=== PATIENT | female | born 1955 | race African-American/Black ===

== ENCOUNTER 2017-03-22 17:25 | Inpatient (IN) ==
[2017-03-22] MEDS ORDERED: PHENYLEPHRINE 0.5% NASAL SPRAY 15 ML BOTTLE BOTH NARES ONE (17:54)
[2017-03-22] MEDS ORDERED: PHENYLEPHRINE 0.5% NASAL SPRAY 15 ML BOTTLE BOTH NARES STA (18:00)
[2017-03-22 18:05] LABS: Basophils % 0.3 % (0.0-0.8); Eosinophils # 0.2 10*3/uL (0.0-0.87); Eosinophils % 2.4 % (0.00-10.9); Hematocrit 23.8 VOL% (35.7-47.0); Hemoglobin 7.7 GM/DL (12.0-16.0); Immature Granulocytes % 0.5 %; Immature Granulocytes Absolute 0.03 #; Lymphocytes # 1.3 10*3/uL (1.4-4.0); Lymphocytes % 21.2 % (21.3-54.2); Mean Corpuscular HGB Conc 32.4 GM/DL (32-36); Mean Corpuscular Hemoglobin 29 PG (27-34); Mean Corpuscular Volume 89.1 FL (87-102); Mean Platelet Volume 8.8 FL (9.6-12.0); Monocytes # 0.3 10*3/uL (0.11-0.8); Monocytes % 4.5 % (1.7-12.7); Neutrophils # 4.4 10*3/uL (1.4-7.4); Neutrophils % 71.1 % (38.7-73.9); Platelet Count 254 T/CUMM (130-400); Red Blood Count 2.67 MC/CUMM (3.8-5.5); Red Cell Distribution Width 14.5 % (9.3-17.3); White Blood Count 6.2 T/CUMM (4-12)
--- NOTE | 2017-03-22 18:22 | Emergency Department Note ---
Kassy Russell Rolonda, am scribing for, and in the presence of, Mino Alonso MD 17:59. Celeste Russell Charles R, MD, personally performed the services described in this documentation, ascribed by Leann Elena in my presence, and it is both accurate and complete 822 . Arrival - Arrival Chief Complaint: Nosebleed/Nasal Foreign Body Stated Complaint: nose bleed ED Nursing Triage Note: pt to triage via wc with c/o having nose bleed onset today around 0800 pt states it hasnt stopped this this am. pt states she is on blood thinner PLavix. Mode of Arrival: Ambulatory Limitations: No Limitations Source: Patient, Old Records Reviewed, RN Notes Reviewed Time Seen by Provider: 03/22/17 17:39 - History of Present Illness HPI Narrative: Pt is a 61 y/o female who presents to the ED with c/o epistaxis with an onset of x1 month. Pt has a PMHx of HTN and states that she is currently taking Plavix. She states that she has a nose bleed "that she just cannot stop". Pt states that the nose bleeds are intermittent; it will stop and it will start back again. She confirms that the blood is very thick but denies any trauma to the nose. She states that she went to [facility] but was unable to be helped which prompted her visit to the ED. Pt states that she has an appointment with ENT tomorrow. To relieve the szs pt states that she puts an ice pack on her neck. She denies vertigo and weakness. Pt's nose was not bleeding during time of exam. No other complaint/pain in ED. Onset (ago): month(s) Consistency: intermittent Severity: mild Severity scale (1-10): 3 Allergies/Adverse Reactions: Allergies Allergy/AdvReac Type Severity Reaction Status Date / Time sulfamethoxazole Allergy Swelling Verified 03/22/17 17:33 [From Bactrim] of Lip/Tongue/Throat trimethoprim [From Bactrim] Allergy Swelling Verified 03/22/17 17:33 of Lip/Tongue/Throat Home Medications: Home Medications Medication Instructions Recorded Confirmed Type Clopidogrel Bisulfate [Clopidogrel] 75 mg PO DAILY 09/09/16 09/09/16 History Ferrous Sulfate Tab [Feosol 325 mg PO DAILY 09/09/16 09/09/16 History Original Tab] Gabapentin 300 mg PO TID 09/09/16 09/09/16 History Iron Polysaccharide Complex 150 mg PO DAILY 09/09/16 09/09/16 History [Ferrex 150] Levothyroxine Tab [Synthroid Tab] 112 mcg PO DAILY@0700 09/09/16 09/09/16 History Pravastatin Sodium 40 mg PO DAILY 09/09/16 09/09/16 History glipiZIDE [Glipizide] 5 mg PO BID 09/09/16 09/09/16 History hydrALAZINE TAB [Apresoline Tab] 50 mg PO TID 09/09/16 09/09/16 History Acetaminophen Tab [Tylenol Tab] 325 mg PO Q4H PRN #0 tablet 09/14/16 Rx Calcitriol [Rocaltrol] 0.5 mcg PO DAILY #30 capsule 09/14/16 Rx Calcium (Carbonate) [Caltrate 600] 1,200 mg PO BID #60 tablet 09/14/16 Rx Calcium Acetate [Phoslo] 667 mg PO TID W/MEALS #90 capsule 09/14/16 Rx Losartan [Cozaar] 50 mg PO DAILY #30 tablet 09/14/16 Rx Metoprolol Succinate Xl [Toprol Xl] 100 mg PO DAILY #30 tablet 09/14/16 Rx Skin Healing Oint (Aquaphor) 1 applic TOP PRN PRN #0 ointment 09/14/16 Rx [Aquaphor] amLODIPine [Norvasc] 5 mg PO DAILY #30 tablet 09/14/16 Rx traZODone [Desyrel] 50 mg PO BEDTIME PRN #30 tablet 09/14/16 Rx Review of System - Review of System 12 point system: reviewed and no additional remarkable complaints except as stated - Review of System Constitutional: Absent: chills, fever Eyes: Absent: discharge Head/Ears/Nose/Throat: Present: epistaxis. Absent: earache Cardiovascular: Absent: chest pain Gastrointestinal: Absent: abdominal pain, nausea Genitourinary female: Absent: abnormal menses Musculoskeletal: Absent: arm pain, back pain Skin: Absent: rash Neurological: Absent: headache Psychiatric: Absent: anxiety Endocrine: Absent: cold intolerance Hematological/Lymphatic: Absent: easy bleeding Allergic/Immunologic: Absent: facial swelling Medical,Surgical,& Family Hx - Medical History Cardio: History of: Hypertension Endocrine: History of: Diabetes Mellitus (IDDM), Dyslipidemia, Thyroid Disorder Renal: History of: Renal Failure (not on dialysis) - Social History Smoking Status: Never smoker Frequency of Alcohol Use: None Type of Drug Use: None Exam Vital Signs: Vital Signs Temperature 97.8 F 03/22/17 17:38 Pulse Rate 95 H 03/22/17 17:38 Respiratory Rate 18 03/22/17 17:38 Blood Pressure 138/74 03/22/17 17:38 O2 Sat by Pulse Oximetry 100 03/22/17 17:28 - General General appearance: alert, in no apparent distress - Head Head exam: Present: atraumatic, normocephalic - Eye Eye exam: Present: PERRL, EOMI, other (Pale conjunctiva) - ENT ENT exam: Present: mucous membranes moist. Absent: normal exam (clotts pulled out of nose), mucous membranes dry - Neck Neck exam: Present: full ROM. Absent: tenderness - Chest Chest inspection: Present: symmetric chest wall rise. Absent: tenderness - Respiratory Respiratory exam: Present: normal lung sounds bilaterally. Absent: wheezes - Cardiovascular Cardiovascular exam: Present: regular rate, normal rhythm, normal heart sounds. Absent: bradycardia - Abdominal Exam Abdominal exam: Present: soft, normal bowel sounds. Absent: tenderness - Extremities Exam Extremities exam: Present: full ROM. Absent: normal inspection (left BKA) - Back Exam Back exam: Present: full ROM. Absent: tenderness - Neurological Exam Neurological exam: Present: alert, oriented X3, CN II-XII intact - Psychiatric Psychiatric exam: Present: normal affect, normal mood - Skin Skin exam: Present: warm, dry, intact, normal color. Absent: rash Course - Consultations Consultation #1: Hospitalist will admit patient Time: 18:20 Results - Labs CBC & BMP: 03/22/17 17:59 Lab Results: I have reviewed the patients labs Labs: Laboratory Tests 03/22/17 17:59 WBC 6.2 RBC 2.67 L Hgb 7.7 L Hct 23.8 L Plt Count 254 MPV 8.8 L Lymph % (Auto) 21.2 L Lymph # (Auto) 1.3 L Disposition Clinical Impression: CKD (chronic kidney disease) stage 4, GFR 15-29 ml/min, Chronic renal failure, Acute blood loss anemia, Anemia due to renal failure, Epistaxis, recurrent, Chronic anticoagulation Case discussed with: patient, patient's family Disposition: Still a Patient Condition: Stable Time of Disposition: 18:26
[2017-03-22 18:50] LABS: Alanine Aminotransferase 13 U/L (13-56); Albumin 3.1 G/DL (3.4-5.0); Alkaline Phosphatase 61 U/L (45-117); Aspartate Amino Transferase 15 U/L (0-37); Bilirubin,Total < 0.39 MG/DL (0.2-1.0); Blood Urea Nitrogen 43 MG/DL (7-18); Calcium 8.4 MG/DL (8.5-10.1); Glucose 168 MG/DL (74-106); Potassium 3.6 MMOL/L (3.5-5.1); Sodium 143 MMOL/L (136-145); Total Protein 6.3 G/DL (6.4-8.3)
[2017-03-22] MEDS ORDERED: DEXTROSE 50% 25 GM/50 ML SYRINGE IV PRN (18:59)
[2017-03-22] MEDS ORDERED: ACETAMINOPHEN 325 MG TABLET PO PRN (18:59)
[2017-03-22] MEDS ORDERED: GLUCAGON 1 MG VIAL IM PRN (18:59)
[2017-03-22] MEDS ORDERED: ONDANSETRON 4 MG/2 ML VIAL IV PRN (18:59)
[2017-03-22] MEDS ORDERED: SODIUM CHLORIDE 0.9% 250 ML IV PRN (19:03)
--- NOTE | 2017-03-22 19:09 | Hospitalist History & Physical ---
Assessment and Plan (1) Chronic renal failure Status: Acute Current Visit: Yes Qualifiers: Chronic kidney disease stage: stage 4 (severe) Qualified Code(s): N18.4 - Chronic kidney disease, stage 4 (severe) (2) Epistaxis, recurrent Status: Acute Current Visit: Yes (3) CKD (chronic kidney disease) stage 4, GFR 15-29 ml/min Problem details: Continue calcitriol to 0.5mcg daily. Increase oral calcium to 1200mg bid. Status: Chronic Current Visit: Yes (4) HTN (hypertension) Status: Acute Current Visit: No (5) Diabetes mellitus Status: Chronic Assessment and plan: Our plan for this patient will be admitting her to our service. She will be placed on monitored bed. I will transfuse 1 unit packed of packed red blood cells. She has a baseline anemia but her H&H is reduced from it. This should get her back to her normal H&H. We will get ENT to see her for their evaluation. Current Visit: No History of Present Illness Chief complaint: Nosebleed History of present illness: Ms. Saavedra is a 61 year old female who presents to our hospital with a past medical history of chronic kidney disease stage IV, hypertension, diabetes, hypothyroidism and increased cholesterol who was in her normal state of health till today. Patient had explained experiencing a nosebleed that has been going on all day. Patient reports that she has had what she considers a significant blood loss. She came to our emergency room for further evaluation. Patient's bleeding has currently stopped. She received Waqas-Synephrine nose spray while in the ER. Patient is on Plavix and our concern is that she is prone for continuous bleed and it would be better to observe her in the hospital. I was consulted to admit her to the emergency room Home Medications Medication Instructions Recorded Confirmed Type Clopidogrel Bisulfate [Clopidogrel] 75 mg PO DAILY 09/09/16 03/22/17 History Gabapentin 300 mg PO TID 09/09/16 03/22/17 History Iron Polysaccharide Complex 150 mg PO DAILY 09/09/16 03/22/17 History [Ferrex 150] Levothyroxine Tab [Synthroid Tab] 112 mcg PO DAILY@0700 09/09/16 03/22/17 History glipiZIDE [Glipizide] 5 mg PO BID W/MEALS 09/09/16 03/22/17 History Acetaminophen Tab [Tylenol Tab] 325 mg PO Q4H PRN #0 tablet 09/14/16 03/22/17 Rx Calcium Acetate [Phoslo] 667 mg PO TID W/MEALS #90 capsule 09/14/16 03/22/17 Rx Calcitriol [Rocaltrol] 0.5 mcg PO BID 03/22/17 03/22/17 History Insulin Degludec [Tresiba 10 units SUBCUT BEDTIME 03/22/17 03/22/17 History Flextouch U-100] Lisinopril [Lisinopril] 20 mg PO DAILY 03/22/17 03/22/17 History Pravastatin Sodium [Pravastatin 80 mg PO DAILY 03/22/17 03/22/17 History Sodium] cloNIDine HCl [Clonidine HCl] 0.1 mg PO BID 03/22/17 03/22/17 History Allergies Allergy/AdvReac Type Severity Reaction Status Date / Time sulfamethoxazole Allergy Swelling Verified 03/22/17 17:33 [From Bactrim] of Lip/Tongue/Throat trimethoprim [From Bactrim] Allergy Swelling Verified 03/22/17 17:33 of Lip/Tongue/Throat Medical,Surgical,& Family Hx - Medical History Cardio: History of: Hypertension Endocrine: History of: Diabetes Mellitus (IDDM), Dyslipidemia, Thyroid Disorder Renal: History of: Renal Failure (not on dialysis) - Surgical History Additional Surgical History: Below the knee amputation on the left, hysterectomy , goiter removal, - Family History Family History: Reports;: Family Cancer, Family Heart Disease, Family Hematology - Social History Smoking Status: Never smoker Frequency of Alcohol Use: None Type of Drug Use: None 12 point system: reviewed and no additional remarkable complaints except as stated Exam - Constitutional Vitals: Period Temp Pulse Resp BP Sys/[place] Pulse Ox Last 24 Hr 97.8 F-97.8 F 95-95 18-18 138-138/74-74 100 General appearance: over weight - Head Head exam: Present: normal inspection - Eye Eye exam: Present: EOMI Pupils: Present: JOE - ENT ENT exam: Present: normal exam - Neck Neck exam: Present: normal inspection - Respiratory Respiratory exam: Present: clear to auscultation bilaterally - Cardiovascular Cardiovascular exam: Present: regular rate and rhythm - GI/Abdominal GI/Abdominal exam: Present: normal bowel sounds - Extremities Exam Extremities exam: Present: normal inspection - Back Exam Back exam: Present: normal inspection - Neurological Exam Neurological exam: Present: alert, oriented X3 - Psychiatric Psychiatric exam: Present: normal affect, normal mood Results - Labs CBC & BMP: 03/22/17 17:59 03/22/17 17:59
[2017-03-22] MEDS: CALCITRIOL 0.25 MCG CAPSULE PO SCH (21:41)
[2017-03-22] MEDS: GABAPENTIN 300 MG CAPSULE PO SCH (21:41)
[2017-03-22] MEDS: cloNIDine 0.1 MG TABLET PO SCH (21:41)
[2017-03-22] MEDS: INSULIN GLARGINE 100 UNIT/ML SUBCUT SCH (21:41)
[2017-03-22] MEDS: INSULIN REGULAR 100 UNIT/ML SUBCUT SCH (21:43)
[2017-03-23 03:00] LABS: Hematocrit 24.8 VOL% (35.7-47.0); Hemoglobin 7.9 GM/DL (12.0-16.0)
[2017-03-23 03:18] LABS: Albumin 2.8 G/DL (3.4-5.0); Bilirubin,Total 0.9 MG/DL (0.2-1.0); Calcium 8.1 MG/DL (8.5-10.1); Osmolality,Calculated 294.1 MOS/KG (273-304); Potassium 3.6 MMOL/L (3.5-5.1); Total Protein 5.8 G/DL (6.4-8.3)
[2017-03-23 03:29] LABS: Basophils % 0.3 % (0.0-0.8); Eosinophils # 0.2 10*3/uL (0.0-0.87); Eosinophils % 2.9 % (0.00-10.9); Hematocrit 24.8 VOL% (35.7-47.0); Hemoglobin 8.1 GM/DL (12.0-16.0); Immature Granulocytes % 0.6 %; Immature Granulocytes Absolute 0.04 #; Lymphocytes # 1.9 10*3/uL (1.4-4.0); Mean Corpuscular HGB Conc 32.7 GM/DL (32-36); Mean Corpuscular Hemoglobin 29 PG (27-34); Mean Corpuscular Volume 87.3 FL (87-102); Mean Platelet Volume 8.9 FL (9.6-12.0); Monocytes # 0.5 10*3/uL (0.11-0.8); Monocytes % 7.5 % (1.7-12.7); Neutrophils # 4.3 10*3/uL (1.4-7.4); Neutrophils % 61.7 % (38.7-73.9); Platelet Count 220 T/CUMM (130-400); Red Blood Count 2.84 MC/CUMM (3.8-5.5); Red Cell Distribution Width 17.1 % (9.3-17.3); White Blood Count 6.9 T/CUMM (4-12)
[2017-03-23] MEDS: LEVOTHYROXINE 112 MCG TABLET PO SCH (06:41)
[2017-03-23] MEDS: GABAPENTIN 300 MG CAPSULE PO SCH ×3 (09:06→22:28)
[2017-03-23] MEDS: PRAVASTATIN 40 MG TABLET PO SCH (09:06)
[2017-03-23] MEDS: LISINOPRIL 20 MG TABLET PO SCH (09:06)
[2017-03-23] MEDS: CALCITRIOL 0.25 MCG CAPSULE PO SCH ×2 (09:06→22:27)
[2017-03-23] MEDS: CALCIUM ACETATE 667 MG CAPSULE PO SCH ×3 (09:07→18:11)
[2017-03-23] MEDS: cloNIDine 0.1 MG TABLET PO SCH ×3 (09:07→23:49)
[2017-03-23] MEDS: glipiZIDE 5 MG TABLET PO SCH ×2 (09:07→18:11)
[2017-03-23] MEDS: INSULIN REGULAR 100 UNIT/ML SUBCUT SCH ×4 (09:07→22:28)
[2017-03-23] MEDS: CLOPIDOGREL 75 MG TABLET PO SCH (09:07)
[2017-03-23] MEDS: PANTOPRAZOLE 40 MG TABLET PO SCH (09:07)
[2017-03-23] MEDS: IRON (CARBONYL)/VIT C/B12/FA TABLET PO SCH (11:59)
--- NOTE | 2017-03-23 12:58 | Consultation ---
Assessment and Plan - Time spent with patient Time spent with patient: Less than 30 minutes (1) Epistaxis, recurrent Status: Acute Assessment and plan: Left sided posterior sinus foam packing to help prevent recurrent epistaxis this is dissolvable and should resolve over the next 3 days to 1 week and was tolerated very well. I will add nasal saline spray for her to use as needed to to help keep her nose moist. If there are any recurrences please notify me as I will not necessarily follow this patient every day during her stay but if there are any problems please notify me thank you very much Current Visit: Yes (2) Chronic kidney disease, stage III (moderate) Status: Acute Current Visit: No (3) Acute blood loss anemia Status: Acute Current Visit: Yes (4) Chronic anticoagulation Status: Acute Current Visit: Yes History of Present Illness - Data of Consult Patient: new to practice Consult date: 03/23/17 - Consult Narrative Reason for consult: Epistaxis History of present illness: Ms. Saavedra is a 61 year old female with multiple medical comorbidities including a history of breast cancer and chronic kidney disease associated with anemia and last night she reports a left-sided nasal airway hemorrhage that took greater than 15 minutes to control and has been intermittent since then she was able to control it with pressure but it took greater than 15 minutes and she reports coughing and choking because of the posterior aspect as well. No additional otolaryngologic complaints CC: Olena Harris MD - Home Medications and Allergies Home Medications: Home Medications Medication Instructions Recorded Confirmed Type Clopidogrel Bisulfate [Clopidogrel] 75 mg PO DAILY 09/09/16 03/22/17 History Gabapentin 300 mg PO TID 09/09/16 03/22/17 History Iron Polysaccharide Complex 150 mg PO DAILY 09/09/16 03/22/17 History [Ferrex 150] Levothyroxine Tab [Synthroid Tab] 112 mcg PO DAILY@0700 09/09/16 03/22/17 History glipiZIDE [Glipizide] 5 mg PO BID W/MEALS 09/09/16 03/22/17 History Acetaminophen Tab [Tylenol Tab] 325 mg PO Q4H PRN #0 tablet 09/14/16 03/22/17 Rx Calcium Acetate [Phoslo] 667 mg PO TID W/MEALS #90 capsule 09/14/16 03/22/17 Rx Calcitriol [Rocaltrol] 0.5 mcg PO BID 03/22/17 03/22/17 History Insulin Degludec [Tresiba 10 units SUBCUT BEDTIME 03/22/17 03/22/17 History Flextouch U-100] Lisinopril [Lisinopril] 20 mg PO DAILY 03/22/17 03/22/17 History Pravastatin Sodium [Pravastatin 80 mg PO DAILY 03/22/17 03/22/17 History Sodium] cloNIDine HCl [Clonidine HCl] 0.1 mg PO BID 03/22/17 03/22/17 History Allergies/Adverse Reactions: Allergies Allergy/AdvReac Type Severity Reaction Status Date / Time sulfamethoxazole Allergy Swelling Verified 03/22/17 17:33 [From Bactrim] of Lip/Tongue/Throat trimethoprim [From Bactrim] Allergy Swelling Verified 03/22/17 17:33 of Lip/Tongue/Throat 12 point system: reviewed and no additional remarkable complaints except as stated Medical,Surgical,& Family Hx - Medical History Cardio: History of: Hypertension Endocrine: History of: Diabetes Mellitus (IDDM), Dyslipidemia, Thyroid Disorder Respiratory: History of: Obstructive Sleep Apnea Renal: History of: Renal Failure (not on dialysis) Musculoskeletal: History of: Amputation (left BKA) Hematology: History of: Anemia - Family History Family History: Reports;: Family Cancer, Family Heart Disease, Family Hematology - Social History Smoking Status: Never smoker Frequency of Alcohol Use: None Type of Drug Use: None Exam - Constitutional Vitals: Period Temp Pulse Resp BP Sys/[place] Pulse Ox Last 24 Hr 96.1 F-98 F 57-95 16-20 132-181/58-77 96-100 General appearance: normal weight, no acute distress - Head Head exam: Present: normal inspection, normocephalic - Eye Eye exam: Present: EOMI Pupils: Present: JOE - ENT ENT exam: Present: normal exam, normal external ear exam, normal oropharynx, other (Anterior rhinoscopy on the left reveals dried hemorrhage consistent with epistaxis in the posterior portion of the nasal airway.) - Neck Neck exam: Present: normal inspection - Respiratory Respiratory exam: Present: other (No shortness of breath or difficulty breathing ) - Extremities Exam Extremities exam: Present: normal inspection, normal capillary refill - Neurological Exam Neurological exam: Present: alert, oriented X3, CN II-XII intact - Psychiatric Psychiatric exam: Present: normal affect, normal mood - Skin Skin exam: Present: normal color, warm Results - Labs CBC & BMP: 03/23/17 02:24 03/23/17 02:24 Lab Results: I have reviewed the past 24 hour labs
[2017-03-23] MEDS ORDERED: SODIUM CHLORIDE 0.65% NASAL SPRAY 45 ML BOTTLE BOTH NARES PRN (13:03)
[2017-03-23 18:00] LABS: Hematocrit 35.2 VOL% (35.7-47.0)
[2017-03-23 18:01] LABS: Hemoglobin 11.8 GM/DL (12.0-16.0)
--- NOTE | 2017-03-23 18:10 | Hospitalist Progress Note ---
Assessment and Plan (1) Epistaxis, recurrent Status: Acute Assessment and plan: Status post nasal packing by ENT. Monitor closely for further bleeding. Discharge home in a.m. if H&H stable and no further bleeding occurs. Current Visit: Yes (2) Acute blood loss anemia Status: Acute Assessment and plan: Improved after transfusion of 3 units of packed red blood cells. Repeat CBC in a.m. Current Visit: Yes (3) Hypothyroidism Status: Chronic Current Visit: No Qualifiers: Hypothyroidism type: acquired Qualified Code(s): E03.9 - Hypothyroidism, unspecified (4) Diabetes mellitus Status: Chronic Current Visit: No (5) CKD (chronic kidney disease) stage 4, GFR 15-29 ml/min Problem details: Continue calcitriol to 0.5mcg daily. Increase oral calcium to 1200mg bid. Status: Chronic Current Visit: Yes (6) HTN (hypertension) Status: Acute Current Visit: No Hospitalist: Subjective Interval history: Patient seen and examined. No acute events overnight. Case discussed with nursing staff. Labs reviewed. The patient was admitted overnight with significant epistaxis on anticoagulation. She was seen and examined by ENT today. Nasal packing was placed. The patient will be monitored overnight with repeat labs in a.m. and anticipate discharge home tomorrow if no further bleeding occurs Exam - Constitutional Vitals: Period Temp Pulse Resp BP Sys/[place] Pulse Ox Last 24 Hr 96.1 F-98.1 F 57-94 16-20 132-196/58-84 95-100 Exam: Constitutional System: No distress. No tremulousness. Head: Normocephalic, atraumatic. Ears, Nose and Throat System: No pain or tenderness. No active bleeding or discharge noted from the nares Eyes System: Pupils equal, round, and reactive. Extraocular muscles intact. Neck: Supple, without adenopathy, No jugular venous distention. Respiratory System: Chest clear to auscultation. Cardiovascular System: Heart with regular rate and rhythm. No murmur. GI System: Abdomen soft, nontender. Normo active bowel sounds present. Musculoskeletal System: limbs with no pedal edema. Full distal pulses. Neurological System: No discernable sensory deficit. No aphasia Psychiatric System: Conversation is rational Results - Labs CBC & BMP: 03/23/17 17:42 03/23/17 02:24 Lab Results: I have reviewed the past 24 hour labs
[2017-03-23] MEDS: INSULIN GLARGINE 100 UNIT/ML SUBCUT SCH (22:26)
[2017-03-24 05:56] LABS: Basophils % 0.3 % (0.0-0.8); Eosinophils # 0.2 10*3/uL (0.0-0.87); Eosinophils % 3.3 % (0.00-10.9); Hematocrit 31.9 VOL% (35.7-47.0); Hemoglobin 10.8 GM/DL (12.0-16.0); Immature Granulocytes % 0.8 %; Immature Granulocytes Absolute 0.06 #; Lymphocytes % 27.4 % (21.3-54.2); Mean Corpuscular HGB Conc 33.9 GM/DL (32-36); Mean Corpuscular Hemoglobin 29 PG (27-34); Mean Corpuscular Volume 84.4 FL (87-102); Monocytes # 0.5 10*3/uL (0.11-0.8); Monocytes % 7.3 % (1.7-12.7); Neutrophils # 4.4 10*3/uL (1.4-7.4); Neutrophils % 60.9 % (38.7-73.9); Platelet Count 212 T/CUMM (130-400); Red Blood Count 3.78 MC/CUMM (3.8-5.5); Red Cell Distribution Width 16.8 % (9.3-17.3); White Blood Count 7.2 T/CUMM (4-12)
[2017-03-24 06:40] LABS: Calcium 8.9 MG/DL (8.5-10.1); Osmolality,Calculated 296.7 MOS/KG (273-304); Potassium 3.6 MMOL/L (3.5-5.1)
[2017-03-24] MEDS: LEVOTHYROXINE 112 MCG TABLET PO SCH (07:21)
[2017-03-24] MEDS: GABAPENTIN 300 MG CAPSULE PO SCH ×3 (09:17→21:17)
[2017-03-24] MEDS: LISINOPRIL 20 MG TABLET PO SCH (09:17)
[2017-03-24] MEDS: glipiZIDE 5 MG TABLET PO SCH ×2 (09:17→17:17)
[2017-03-24] MEDS: cloNIDine 0.1 MG TABLET PO SCH ×2 (09:17→21:17)
[2017-03-24] MEDS: INSULIN REGULAR 100 UNIT/ML SUBCUT SCH ×4 (09:17→21:23)
[2017-03-24] MEDS: CALCIUM ACETATE 667 MG CAPSULE PO SCH ×3 (09:18→17:16)
[2017-03-24] MEDS: CLOPIDOGREL 75 MG TABLET PO SCH (09:18)
[2017-03-24] MEDS: PRAVASTATIN 40 MG TABLET PO SCH (09:18)
[2017-03-24] MEDS: IRON (CARBONYL)/VIT C/B12/FA TABLET PO SCH (09:18)
[2017-03-24] MEDS: PANTOPRAZOLE 40 MG TABLET PO SCH (09:18)
[2017-03-24] MEDS: CALCITRIOL 0.25 MCG CAPSULE PO SCH ×2 (10:21→21:44)
[2017-03-24] MEDS ORDERED: hydrALAZINE 25 MG TABLET PO SCH (15:00)
[2017-03-24] MEDS ORDERED: hydrALAZINE 20 MG/1 ML VIAL IV ONE (15:29)
--- NOTE | 2017-03-24 20:28 | Hospitalist Progress Note ---
Hospitalist: Subjective Interval history: Patient has no further epistaxis. Her blood pressure remains uncontrolled he also has episodes of sinus bradycardia. Exam - Constitutional Vitals: Period Temp Pulse Resp BP Sys/[place] Pulse Ox Last 24 Hr 97 F-97.6 F 18-66 18-20 186-204/60-85 92-99 Exam: General: No Acute Distress HEENT: Normocephalic, atraumatic, Extra ocular movements intact Neck: Supple, No JVD Chest: Clear to auscultation B/L CV: S1 + S2 audible without murmur, gallop or rub Abd: soft, NT, Non-distended, BS + Ext: No edema Skin: No purpura, bruising or rash Rheumatologic: No Joint deformities Neurologic: Strength 5/5 all extremities, no gross sensory deficits Results - Labs CBC & BMP: 03/24/17 05:09 03/24/17 05:09 - Impressions Assessment and Plan: (1) Epistaxis, recurrent Status: Acute Assessment and plan: Status post nasal packing by ENT. She has no further bleeding Current Visit: Yes (2) Acute blood loss anemia Status: Acute Assessment and plan: Improved after transfusion of 3 units of packed red blood cells. Current Visit: Yes (3) Hypothyroidism Status: Chronic Current Visit: No Qualifiers: Hypothyroidism type: acquired Qualified Code(s): E03.9 - Hypothyroidism, unspecified (4) Diabetes mellitus-II Status: Chronic Current Visit: No (5) CKD (chronic kidney disease) stage 4, GFR 15-29 ml/min Status: Chronic Current Visit: Yes (6) Hypertensive urgency Status: Acute Current Visit: Yes IV as well as oral hydralazine. Home Lopressor was held due to bradycardia, she has been started on Tenex. Continue to monitor blood pressure and heart rate and adjust medications as dictated by her blood pressure and heart rate.
[2017-03-24] MEDS: INSULIN GLARGINE 100 UNIT/ML SUBCUT SCH (21:22)
[2017-03-25] MEDS: LEVOTHYROXINE 112 MCG TABLET PO SCH (06:59)
[2017-03-25] MEDS: PRAVASTATIN 40 MG TABLET PO SCH (08:17)
[2017-03-25] MEDS: CALCITRIOL 0.25 MCG CAPSULE PO SCH ×2 (08:17→21:22)
[2017-03-25] MEDS: IRON (CARBONYL)/VIT C/B12/FA TABLET PO SCH (08:17)
[2017-03-25] MEDS: CALCIUM ACETATE 667 MG CAPSULE PO SCH ×3 (08:17→17:06)
[2017-03-25] MEDS: CLOPIDOGREL 75 MG TABLET PO SCH (08:17)
[2017-03-25] MEDS: GABAPENTIN 300 MG CAPSULE PO SCH ×3 (08:17→21:23)
[2017-03-25] MEDS: glipiZIDE 5 MG TABLET PO SCH ×2 (08:18→17:06)
[2017-03-25] MEDS: cloNIDine 0.1 MG TABLET PO SCH ×2 (08:18→21:23)
[2017-03-25] MEDS: PANTOPRAZOLE 40 MG TABLET PO SCH (08:18)
[2017-03-25] MEDS: LISINOPRIL 20 MG TABLET PO SCH (08:18)
[2017-03-25] MEDS: INSULIN REGULAR 100 UNIT/ML SUBCUT SCH ×4 (08:22→21:23)
[2017-03-25] MEDS: ISOSORBIDE DINITRATE 20 MG TABLET PO SCH ×2 (09:10→21:23)
[2017-03-25] MEDS: hydrALAZINE 20 MG/1 ML VIAL IV PRN (15:56)
[2017-03-25] MEDS ORDERED: LISINOPRIL 20 MG TABLET PO ONE (17:52)
[2017-03-25] MEDS: INSULIN GLARGINE 100 UNIT/ML SUBCUT SCH (21:23)
[2017-03-26] MEDS: hydrALAZINE 20 MG/1 ML VIAL IV PRN ×2 (00:03→06:36)
[2017-03-26 06:19] LABS: Calcium 9.9 MG/DL (8.5-10.1); Osmolality,Calculated 302.7 MOS/KG (273-304); Potassium 3.7 MMOL/L (3.5-5.1)
[2017-03-26] MEDS: LEVOTHYROXINE 112 MCG TABLET PO SCH (06:37)
[2017-03-26] MEDS: INSULIN REGULAR 100 UNIT/ML SUBCUT SCH ×2 (07:49→12:12)
[2017-03-26] MEDS: GABAPENTIN 300 MG CAPSULE PO SCH (08:52)
[2017-03-26] MEDS: PRAVASTATIN 40 MG TABLET PO SCH (08:52)
[2017-03-26] MEDS: PANTOPRAZOLE 40 MG TABLET PO SCH (08:52)
[2017-03-26] MEDS: IRON (CARBONYL)/VIT C/B12/FA TABLET PO SCH (08:52)
[2017-03-26] MEDS: CALCIUM ACETATE 667 MG CAPSULE PO SCH ×2 (08:52→12:10)
[2017-03-26] MEDS: CALCITRIOL 0.25 MCG CAPSULE PO SCH (08:52)
[2017-03-26] MEDS: cloNIDine 0.1 MG TABLET PO SCH (08:52)
[2017-03-26] MEDS: ISOSORBIDE DINITRATE 20 MG TABLET PO SCH (08:53)
[2017-03-26] MEDS: CLOPIDOGREL 75 MG TABLET PO SCH (08:53)
[2017-03-26] MEDS: LISINOPRIL 20 MG TABLET PO SCH (08:53)
[2017-03-26] MEDS: glipiZIDE 5 MG TABLET PO SCH (08:53)
[2017-03-26] MEDS ORDERED: LISINOPRIL 20 MG TABLET PO SCH (09:00)
[2017-03-26] MEDS ORDERED: LISINOPRIL 10 MG TABLET PO SCH (10:01)
[2017-03-26] MEDS ORDERED: amLODIPine 10 MG TABLET PO SCH (10:30)
--- NOTE | 2017-03-26 12:24 | Discharge Summary ---
Hospital Course - Hospital Course Hospital Course: 61 year old female with history of chronic kidney disease stage IV, hypertension , diabetes, hypothyroidism was admitted with epistaxis. She received Waqas- Synephrine nose spray while in the ER. Patient was on Plavix as well. She was admitted to the hospitalist service. He was seen by ENT Dr. Chavez on who place a left-sided posterior sinus foam packing to prevent recurrent epistaxis which was dissolveable. Her episode of epistaxis resolved. However she had issues with hypertensive urgency. Blood pressure shot up to averaging systolic 200s and she will also had problems with bradycardia. Sinus bradycardia was felt to be due to combination of medication including clonidine and Lopressor and nifedipine. Lopressor and nifedipine were discontinued and she was started on hydralazine. Lisinopril dose was increased but she developed further azotemia and it was subsequently dropped down to 10 mg. She was started she was started on Norvasc as well as isosorbide dinitrate. These may as her heart rate is better and probably is now better controlled in 140-150 systolic range. 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 She is aware of her elevated creatinine and has an appointment with her primary care physician tomorrow will monitor her basic metabolic profile and continue her adjust her blood pressure medications based on her heart rate blood pressure and creatinine. I discussed that in detail with the patient. He has reached maximal hospital benefit and being discharged home in improved and stable condition. - Time spent with patient Time with patient DS: Greater than 30 minutes Diagnosis - Discharge Diagnosis (1) Epistaxis, recurrent Status: Resolved (2) Chronic renal failure Status: Acute (3) CKD (chronic kidney disease) stage 4, GFR 15-29 ml/min Status: Chronic Discharge Plan - Discharge Data Condition at Discharge: Stable Discharge Diet: diabetic diet, low salt diet Activity: resume usual activities as tolerated Hygiene: no restrictions Weight Bearing at Discharge: full weight bearing Driving: no restrictions Contact your physician if you experience:: Nausea/Vomiting, Shortness of breath - Discharge Medications New hydrALAZINE TAB [Apresoline Tab] 100 mg PO TID #90 tablet Isosorbide Dinitrate [Isordil] 20 mg PO BID #60 tablet amLODIPine [Norvasc] 10 mg PO DAILY #30 tablet Lisinopril [Prinivil] 10 mg PO DAILY #30 tablet Continue glipiZIDE [Glipizide] 5 mg PO BID W/MEALS Clopidogrel Bisulfate [Clopidogrel] 75 mg PO DAILY Acetaminophen Tab [Tylenol Tab] 325 mg PO Q4H PRN #0 tablet PRN Reason: fever, headache/body aches cloNIDine HCl [Clonidine HCl] 0.1 mg PO BID Insulin Degludec [Tresiba Flextouch U-100] 10 units SUBCUT BEDTIME Aspirin [Ecotrin] 81 mg PO DAILY Gabapentin 300 mg PO TID Iron Polysaccharide Complex [Ferrex 150] 150 mg PO BID Levothyroxine Tab [Synthroid Tab] 112 mcg PO DAILY@0700 Calcium Acetate [Phoslo] 667 mg PO TID W/MEALS #90 capsule Calcitriol [Rocaltrol] 0.5 mcg PO DAILY Pravastatin Sodium 80 mg PO DAILY Discontinued Lisinopril [Lisinopril] 20 mg PO DAILY NIFEdipine [Nifedipine ER] 2 tablet PO DAILY Metoprolol Succinate 3 tablet PO BEDTIME hydrALAZINE TAB [Apresoline Tab] 50 mg PO TID - Follow Up or Referral - Forms/Instructions Exam - Constitutional Vitals: Period Temp Pulse Resp BP Sys/[place] Pulse Ox Last 24 Hr 96.5 F-98.2 F 50-71 16-20 144-194/61-79 93-98 Exam: General: No Acute Distress HEENT: Normocephalic, atraumatic, Extra ocular movements intact Neck: Supple, No JVD Chest: Clear to auscultation B/L CV: S1 + S2 audible without murmur, gallop or rub Abd: soft, NT, Non-distended, BS + Ext: No edema Skin: No purpura, bruising or rash Rheumatologic: No Joint deformities Neurologic: Strength 5/5 all extremities, no gross sensory deficits Discharge Results Labs on day of discharge: Labs from last 24 hours 03/26/17 03/26/17 03/26/17 11:44 07:09 05:33 Sodium Potassium Chloride Carbon Dioxide Anion Gap BUN Creatinine GFR Calculation BUN/Creatinine Ratio Glucose POC Glucose 131 H 127 H Hemoglobin A1c 6.5 H Calculated Osmolality Calcium 03/26/17 03/25/17 03/25/17 05:33 21:02 16:05 Sodium 145 Potassium 3.7 Chloride 110 H Carbon Dioxide 25 Anion Gap 13.7 BUN 51 H Creatinine 4.20 H GFR Calculation 13 BUN/Creatinine Ratio 12.00 Glucose 118 H POC Glucose 143 H 121 H Hemoglobin A1c Calculated Osmolality 302.7 Calcium 9.9 DS: Provider Date of admission: 03/22/17 18:26 Primary care physician: . No PCP Attending physician on admission: Tacos Johnson MD Consults: 03/22/17 18:59 Consult to Physician [CONS] Routine Comment: Significant nosebleed Consulting Provider: Consult to Specialist Group: ENT When should Consulting Provider be notified: In am Person Notified: Diego Date Notified: 03/23/17 Time Notified: 08:30 Discharging clinician: Gardenia Espinoza MD
[2017-03-26 13:08] VITALS: BP 165/70
[2017-03-26] MEDS ORDERED: LISINOPRIL 20 MG TABLET PO ONE (17:16)
== END 2017-03-26 14:33 | disposition home or self-care (01) | DRG 151 ==
LOC: N.ED 17:25 → N.EDINP 18:26 → SUATTDRO 18:26 → N.4E 19:36 → N.TELEN 20:33
PROVIDERS: ADMIT Internal Medicine; ATTEND Hospitalist

== ENCOUNTER 2018-01-28 16:47 | Inpatient (IN) ==
[2018-01-28] MEDS ORDERED: SODIUM CHLORIDE 0.9% 500 ML IV STA (17:15)
[2018-01-28] MEDS ORDERED: MECLIZINE 25 MG TABLET PO STA (17:15)
[2018-01-28] MEDS ORDERED: ONDANSETRON 4 MG/2 ML VIAL IV STA (17:15)
[2018-01-28 17:58] LABS: Basophils % 0.1 % (0.0-0.8); Eosinophils # 0.1 10*3/uL (0.0-0.87); Eosinophils % 0.7 % (0.00-10.9); Hematocrit 18.5 VOL% (35.7-47.0); Immature Granulocytes Absolute 0.07 #; Lymphocytes # 1.4 10*3/uL (1.4-4.0); Lymphocytes % 20.6 % (21.3-54.2); Mean Corpuscular HGB Conc 31.9 GM/DL (32-36); Mean Corpuscular Hemoglobin 30 PG (27-34); Mean Corpuscular Volume 93.9 FL (87-102); Mean Platelet Volume 9.1 FL (9.6-12.0); Monocytes # 0.3 10*3/uL (0.11-0.8); Monocytes % 4.5 % (1.7-12.7); Neutrophils # 5.1 10*3/uL (1.4-7.4); Neutrophils % 73.1 % (38.7-73.9); Platelet Count 238 T/CUMM (130-400); Red Blood Count 1.97 MC/CUMM (3.8-5.5); Red Cell Distribution Width 14.6 % (9.3-17.3); White Blood Count 6.9 T/CUMM (4-12)
[2018-01-28 18:08] LABS: Hemoglobin 5.9 GM/DL (12.0-16.0)
[2018-01-28 18:14] LABS: PT Patient Result 10.3 SECS
[2018-01-28 18:41] LABS: Alanine Aminotransferase 10 U/L (13-56); Albumin 2.5 G/DL (3.4-5.0); Alkaline Phosphatase 34 U/L (45-117); Aspartate Amino Transferase 10 U/L (0-37); Bilirubin,Total < 0.39 MG/DL (0.2-1.0); Blood Urea Nitrogen 61 MG/DL (7-18); Calcium 10.6 MG/DL (8.5-10.1); Glucose 188 MG/DL (74-106); Osmolality,Calculated 309.7 MOS/KG (273-304); Potassium 4.9 MMOL/L (3.5-5.1); Sodium 145 MMOL/L (136-145); Total Protein 5.5 G/DL (6.4-8.3)
[2018-01-28] MEDS ORDERED: SODIUM CHLORIDE 0.9% 1,000 ML IV PRN (20:06)
[2018-01-28] MEDS ORDERED: ACETAMINOPHEN 325 MG TABLET PO PRN (20:08)
[2018-01-28] MEDS ORDERED: PANTOPRAZOLE 40 MG VIAL IV ONE (21:00)
[2018-01-28] MEDS ORDERED: DEXTROSE 50% 25 GM/50 ML VIAL IV PRN (21:14)
[2018-01-28] MEDS ORDERED: GLUCAGON 1 MG VIAL IM PRN (21:14)
[2018-01-28] MEDS: SODIUM CHLORIDE 0.9% 1,000 ML IV SCH (21:23)
[2018-01-28 21:30] LABS: Sedimentation Rate-Westergren 50 MM/HR (0-30)
[2018-01-28] MEDS: INSULIN LISPRO 100 UNIT/ML SUBCUT SCH (22:26)
[2018-01-28] MEDS ORDERED: PROMETHAZINE 25 MG/1 ML VIAL IM PRN (22:52)
[2018-01-28] MEDS ORDERED: ONDANSETRON 4 MG/2 ML VIAL IV PRN (22:52)
[2018-01-29] MEDS: INSULIN LISPRO 100 UNIT/ML SUBCUT SCH ×7 (03:21→23:56)
[2018-01-29 06:16] LABS: Apearance,Urine CLEAR (Clear); Bacteria,Urine Many /HPF (Few); Bilirubin,Urine Negative (Negative); Blood, Urine Negative (Negative); Glucose,Urine (UA) Negative (Negative); Ketones,Urine Negative (Negative); Mucus,Urine Few /LPF (Occasional); Nitrite,Urine Negative (Negative); Protein,Urine 30 MG/DL; RBC,Urine <1 /HPF (0-4); Squamous Epithelial Cell,Urine Occasional /HPF (0-10); Urine Color Yellow (Yellow); Urine Urobilinogen < 2.0 EU/DL (0.2-1.0); WBC,Urine 1 /HPF (0-6)
[2018-01-29] MEDS: SODIUM CHLORIDE 0.9% 1,000 ML IV SCH ×3 (06:41→23:56)
[2018-01-29 07:30] LABS: Barbiturates Screen,Urine Negative (Negative); Benzodiazepines Screen,Urine Negative (Negative); Cannabinoid Screen,Urine Negative (Negative); Opiate Screen,Urine Negative (Negative); Phencyclidine Screen,Urine Negative (Negative)
[2018-01-29] MEDS ORDERED: PANTOPRAZOLE 40 MG VIAL IV SCH (09:00)
[2018-01-29] MEDS: POLYETHYLENE GLYCOL POWDER 17 GM PACK PO SCH ×3 (09:58→22:04)
[2018-01-29] MEDS: PANTOPRAZOLE 40 MG VIAL IV SCH ×2 (09:59→22:02)
[2018-01-29 10:00] LABS: Basophils % 0.2 % (0.0-0.8); Hematocrit 24.8 VOL% (35.7-47.0); Immature Granulocytes % 1.1 %; Immature Granulocytes Absolute 0.14 #; Lymphocytes # 1.3 10*3/uL (1.4-4.0); Lymphocytes % 10.2 % (21.3-54.2); Mean Corpuscular HGB Conc 33.9 GM/DL (32-36); Mean Corpuscular Hemoglobin 30 PG (27-34); Mean Corpuscular Volume 89.9 FL (87-102); Mean Platelet Volume 9.7 FL (9.6-12.0); Monocytes # 0.7 10*3/uL (0.11-0.8); Monocytes % 5.3 % (1.7-12.7); NRBC # 0.02 10*3/uL; Neutrophils # 10.8 10*3/uL (1.4-7.4); Neutrophils % 83.2 % (38.7-73.9); Red Cell Distribution Width 14.6 % (9.3-17.3)
[2018-01-29 10:25] LABS: Hemoglobin 8.4 GM/DL (12.0-16.0); Platelet Count 126 T/CUMM (130-400); Red Blood Count 2.76 MC/CUMM (3.8-5.5)
[2018-01-29 10:41] LABS: Calcium 9.2 MG/DL (8.5-10.1); Osmolality,Calculated 319.8 MOS/KG (273-304); Potassium 5.1 MMOL/L (3.5-5.1)
[2018-01-29] MEDS: CALCIUM ACETATE 667 MG CAPSULE PO SCH ×2 (11:47→17:25)
[2018-01-29 16:03] LABS: Hematocrit 21.4 VOL% (35.7-47.0); Hemoglobin 7.4 GM/DL (12.0-16.0)
[2018-01-29] MEDS: CALCITRIOL 0.25 MCG CAPSULE PO SCH (22:04)
[2018-01-30 01:21] LABS: Hematocrit 25.7 VOL% (35.7-47.0); Hemoglobin 8.6 GM/DL (12.0-16.0)
[2018-01-30 01:23] LABS: Hemoglobin 8.8 GM/DL (12.0-16.0)
[2018-01-30 01:26] LABS: Basophils % 0.2 % (0.0-0.8); Eosinophils # 0.2 10*3/uL (0.0-0.87); Eosinophils % 1.6 % (0.00-10.9); Hematocrit 25.6 VOL% (35.7-47.0); Hemoglobin 8.8 GM/DL (12.0-16.0); Immature Granulocytes % 1.3 %; Immature Granulocytes Absolute 0.16 #; Lymphocytes % 23.6 % (21.3-54.2); Mean Corpuscular HGB Conc 34.4 GM/DL (32-36); Mean Corpuscular Hemoglobin 31 PG (27-34); Mean Corpuscular Volume 91.1 FL (87-102); Mean Platelet Volume 9.6 FL (9.6-12.0); Monocytes # 0.9 10*3/uL (0.11-0.8); Monocytes % 7.3 % (1.7-12.7); NRBC # 0.05 10*3/uL; Neutrophils # 8.4 10*3/uL (1.4-7.4); Platelet Count 99 T/CUMM (130-400); Red Blood Count 2.81 MC/CUMM (3.8-5.5); Red Cell Distribution Width 14.2 % (9.3-17.3); White Blood Count 12.8 T/CUMM (4-12)
[2018-01-30 01:37] LABS: Calcium 9.1 MG/DL (8.5-10.1); Osmolality,Calculated 325.7 MOS/KG (273-304); Potassium 4.2 MMOL/L (3.5-5.1)
[2018-01-30 02:04] LABS: Platelet Estimate Decreased
[2018-01-30] MEDS: INSULIN LISPRO 100 UNIT/ML SUBCUT SCH ×5 (04:57→20:52)
[2018-01-30] MEDS: CALCIUM ACETATE 667 MG CAPSULE PO SCH ×3 (08:00→17:35)
[2018-01-30] MEDS ORDERED: PROPOFOL 200 MG/20 ML VIAL IV ONE (09:00)
[2018-01-30] MEDS: POLYETHYLENE GLYCOL POWDER 17 GM PACK PO SCH (09:00)
[2018-01-30] MEDS: CALCITRIOL 0.25 MCG CAPSULE PO SCH ×2 (09:00→20:53)
[2018-01-30] MEDS ORDERED: LIDOCAINE 2% 5 ML VIAL ONE (09:00)
[2018-01-30] MEDS: PANTOPRAZOLE 40 MG VIAL IV SCH (10:00)
[2018-01-30 10:56] LABS: Hematocrit 22.2 VOL% (35.7-47.0); Hemoglobin 7.8 GM/DL (12.0-16.0)
[2018-01-30] MEDS: SODIUM CHLORIDE 0.9% 1,000 ML IV SCH ×2 (11:40→12:30)
[2018-01-30 17:50] LABS: Hematocrit 30.5 VOL% (35.7-47.0); Hemoglobin 10.3 GM/DL (12.0-16.0)
[2018-01-30] MEDS: PANTOPRAZOLE 40 MG TABLET PO SCH (18:45)
[2018-01-31] MEDS: INSULIN LISPRO 100 UNIT/ML SUBCUT SCH ×3 (02:00→07:55)
[2018-01-31 04:55] LABS: Basophils % 0.3 % (0.0-0.8); Eosinophils # 0.3 10*3/uL (0.0-0.87); Eosinophils % 2.7 % (0.00-10.9); Hematocrit 28.1 VOL% (35.7-47.0); Hemoglobin 9.9 GM/DL (12.0-16.0); Immature Granulocytes % 1.3 %; Immature Granulocytes Absolute 0.15 #; Lymphocytes % 17.1 % (21.3-54.2); Mean Corpuscular HGB Conc 35.2 GM/DL (32-36); Mean Corpuscular Hemoglobin 31 PG (27-34); Mean Corpuscular Volume 87.3 FL (87-102); Monocytes # 0.8 10*3/uL (0.11-0.8); Monocytes % 6.4 % (1.7-12.7); NRBC # 0.11 10*3/uL; Neutrophils # 8.5 10*3/uL (1.4-7.4); Neutrophils % 72.2 % (38.7-73.9); Red Blood Count 3.22 MC/CUMM (3.8-5.5); Red Cell Distribution Width 15.3 % (9.3-17.3); White Blood Count 11.7 T/CUMM (4-12)
[2018-01-31 04:58] LABS: Platelet Count 87 T/CUMM (130-400)
[2018-01-31 05:17] LABS: Calcium 9.3 MG/DL (8.5-10.1); Osmolality,Calculated 329.1 MOS/KG (273-304); Potassium 4.4 MMOL/L (3.5-5.1)
[2018-01-31 05:36] LABS: Platelet Estimate Decreased
[2018-01-31] MEDS: PANTOPRAZOLE 40 MG TABLET PO SCH (06:18)
[2018-01-31] MEDS: SODIUM CHLORIDE 0.9% 1,000 ML IV SCH (07:40)
[2018-01-31] MEDS: CALCITRIOL 0.25 MCG CAPSULE PO SCH (08:30)
[2018-01-31] MEDS: CALCIUM ACETATE 667 MG CAPSULE PO SCH (08:30)
[2018-01-31 11:13] VITALS: BP 159/106
== END 2018-01-31 10:50 | disposition home or self-care (01) | DRG 378 ==
LOC: EDBD → EDUNIT# → N.ED 16:47 → SUATTDRO 18:29 → N.EDINP 18:29 → N.ICU 21:05
PROVIDERS: ADMIT Internal Medicine Geriatric Medicine; ATTEND Internal Medicine

== ENCOUNTER 2018-06-15 22:15 | Inpatient (IN) ==
[2018-06-16 00:03] LABS: Basophils % 0.1 % (0.0-0.8); Eosinophils # 0.1 10*3/uL (0.0-0.87); Eosinophils % 1.7 % (0.00-10.9); Immature Granulocytes % 0.5 %; Immature Granulocytes Absolute 0.04 #; Lymphocytes # 1.2 10*3/uL (1.4-4.0); Lymphocytes % 15.2 % (21.3-54.2); Mean Corpuscular HGB Conc 32.3 GM/DL (32-36); Mean Corpuscular Hemoglobin 31 PG (27-34); Mean Corpuscular Volume 96.4 FL (87-102); Monocytes # 0.4 10*3/uL (0.11-0.8); Monocytes % 4.6 % (1.7-12.7); Neutrophils # 6.1 10*3/uL (1.4-7.4); Neutrophils % 77.9 % (38.7-73.9); Platelet Count 167 T/CUMM (130-400); Red Blood Count 1.38 MC/CUMM (3.8-5.5); Red Cell Distribution Width 14.8 % (9.3-17.3); White Blood Count 7.8 T/CUMM (4-12)
[2018-06-16 00:11] LABS: Hematocrit 13.3 VOL% (35.7-47.0); Hemoglobin 4.3 GM/DL (12.0-16.0)
[2018-06-16 00:24] LABS: Alanine Aminotransferase 17 U/L (13-56); Albumin 2.7 G/DL (3.4-5.0); Alkaline Phosphatase 40 U/L (45-117); Aspartate Amino Transferase 25 U/L (0-37); Bilirubin,Total < 0.39 MG/DL (0.2-1.0); Blood Urea Nitrogen 85 MG/DL (7-18); Calcium 11.6 MG/DL (8.5-10.1); Glucose 96 MG/DL (74-106); Potassium 3.1 MMOL/L (3.5-5.1); Sodium 143 MMOL/L (136-145); Total Protein 5.8 G/DL (6.4-8.3)
[2018-06-16 00:26] LABS: INR 0.9; PT Patient Result 9.6 SECS
[2018-06-16] MEDS ORDERED: SODIUM CHLORIDE 0.9% 500 ML IV STA (00:26)
[2018-06-16] MEDS ORDERED: SODIUM CHLORIDE 0.9% 1,000 ML IV PRN (00:35)
[2018-06-16 01:00] LABS: Hematocrit 12.5 VOL% (35.7-47.0)
[2018-06-16 01:01] LABS: Partial Thromboplastin Time > 320.0 SECS (0-40)
[2018-06-16] MEDS ORDERED: ONDANSETRON 4 MG/2 ML VIAL IV PRN (03:20)
[2018-06-16] MEDS ORDERED: ALBUTEROL 2.5 MG/3 ML NEB RESP TX PRN (03:20)
[2018-06-16] MEDS ORDERED: MAGNESIUM SULF RIDER 4 GM in PREMIX 1 EACH IV PRN (03:49)
[2018-06-16] MEDS ORDERED: MAGNESIUM SULF RIDER 2 GM in PREMIX 1 EACH IV PRN (03:49)
[2018-06-16] MEDS ORDERED: hydrALAZINE 20 MG/1 ML VIAL IV PRN (03:56)
[2018-06-16] MEDS ORDERED: DEXTROSE 50% 25 GM/50 ML VIAL IV PRN (03:59)
[2018-06-16] MEDS ORDERED: GLUCAGON 1 MG VIAL IM PRN (03:59)
[2018-06-16] MEDS ORDERED: PANTOPRAZOLE INJ 200 MG in SODIUM CHLORIDE 0.9% 250 ML IV SCH (04:00)
[2018-06-16 04:25] LABS: Hematocrit 12.7 VOL% (35.7-47.0); Hemoglobin 4.1 GM/DL (12.0-16.0)
[2018-06-16 04:35] LABS: INR 0.9; PT Patient Result 9.8 SECS
[2018-06-16 04:49] LABS: Calcium 11.1 MG/DL (8.5-10.1); Potassium 2.9 MMOL/L (3.5-5.1)
[2018-06-16 04:56] LABS: Anisocytosis 1+; Hypochromasia Slight; Platelet Estimate Adequate
[2018-06-16 04:57] LABS: Apearance,Urine CLEAR (Clear); Bacteria,Urine Occasional /HPF (Few); Bilirubin,Urine Negative (Negative); Blood, Urine Negative (Negative); Glucose,Urine (UA) 50 mg/dL (Negative); Hyaline Casts,Urine 1 /LPF (0-3); Ketones,Urine Negative (Negative); Mucus,Urine Occasional /LPF (Occasional); Nitrite,Urine Negative (Negative); Protein,Urine 30 MG/DL; Squamous Epithelial Cell,Urine Occasional /HPF (0-10); Urine Color Straw (Yellow); Urine Specific Gravity 1.005 (1.001-1.035); Urine Urobilinogen < 2.0 EU/DL (0.2-1.0); WBC,Urine 2 /HPF (0-6)
[2018-06-16 07:49] LABS: Hematocrit 14.6 VOL% (35.7-47.0); Hemoglobin 4.7 GM/DL (12.0-16.0)
[2018-06-16] MEDS: INSULIN REGULAR 100 UNIT/ML SUBCUT SCH ×4 (08:16→21:03)
[2018-06-16] MEDS: POTASSIUM CHLORIDE RIDER 10 MEQ in PREMIX 1 EACH IV PRN ×6 (09:36→23:20)
[2018-06-16 16:22] LABS: % Iron Saturation 38.4 % (18-50)
[2018-06-16] MEDS: PANTOPRAZOLE 40 MG TABLET PO SCH ×2 (16:58→20:41)
[2018-06-16] MEDS ORDERED: NIFEdipine 10 MG CAPSULE PO PRN (18:02)
[2018-06-16 18:09] LABS: Hematocrit 23.1 VOL% (35.7-47.0); Hemoglobin 7.8 GM/DL (12.0-16.0)
[2018-06-16] MEDS: GABAPENTIN 300 MG CAPSULE PO SCH ×2 (18:16→20:41)
[2018-06-16] MEDS: SODIUM BICARBONATE 650 MG TABLET PO SCH ×2 (18:16→20:41)
[2018-06-16] MEDS: METOPROLOL SUCCINATE XL 50 MG TABLET PO SCH (18:16)
[2018-06-16] MEDS: LACTULOSE 20 GM/30 ML UDCUP PO PRN (20:41)
[2018-06-16 21:03] LABS: Hemoglobin 8.2 GM/DL (12.0-16.0)
[2018-06-17] MEDS: POTASSIUM CHLORIDE RIDER 10 MEQ in PREMIX 1 EACH IV PRN (00:45)
[2018-06-17] MEDS: LEVOTHYROXINE 112 MCG TABLET PO SCH (06:18)
[2018-06-17 06:24] LABS: PT Patient Result 10.3 SECS
[2018-06-17 06:43] LABS: Alanine Aminotransferase 17 U/L (13-56); Albumin 2.2 G/DL (3.4-5.0); Alkaline Phosphatase 29 U/L (45-117); Aspartate Amino Transferase 12 U/L (0-37); Bilirubin,Total < 0.39 MG/DL (0.2-1.0); Blood Urea Nitrogen 115 MG/DL (7-18); Calcium 9.6 MG/DL (8.5-10.1); Glucose 141 MG/DL (74-106); Osmolality,Calculated 330.4 MOS/KG (273-304); Potassium 3.8 MMOL/L (3.5-5.1); Sodium 147 MMOL/L (136-145); Total Protein 4.5 G/DL (6.4-8.3)
[2018-06-17 07:30] LABS: Basophils % 0.2 % (0.0-0.8); Eosinophils # 0.4 10*3/uL (0.0-0.87); Eosinophils % 5.1 % (0.00-10.9); Immature Granulocytes % 0.9 %; Immature Granulocytes Absolute 0.07 #; Lymphocytes % 24.1 % (21.3-54.2); Mean Corpuscular HGB Conc 32.8 GM/DL (32-36); Mean Corpuscular Hemoglobin 30 PG (27-34); Mean Corpuscular Volume 90.5 FL (87-102); Mean Platelet Volume 9.6 FL (9.6-12.0); Monocytes # 0.5 10*3/uL (0.11-0.8); Neutrophils # 5.2 10*3/uL (1.4-7.4); Neutrophils % 63.7 % (38.7-73.9); Platelet Count 99 T/CUMM (130-400); Red Blood Count 1.99 MC/CUMM (3.8-5.5); Red Cell Distribution Width 16.9 % (9.3-17.3); White Blood Count 8.2 T/CUMM (4-12)
[2018-06-17 07:32] LABS: Hemoglobin 5.9 GM/DL (12.0-16.0)
[2018-06-17] MEDS ORDERED: glipiZIDE 5 MG TABLET PO SCH (08:00)
[2018-06-17] MEDS: INSULIN REGULAR 100 UNIT/ML SUBCUT SCH ×4 (08:30→20:52)
[2018-06-17] MEDS ORDERED: ACETAMINOPHEN 325 MG TABLET PO PRN (08:56)
[2018-06-17] MEDS ORDERED: FUROSEMIDE 20 MG/2 ML VIAL IV PRN (08:56)
[2018-06-17] MEDS ORDERED: diphenhydrAMINE CAP 25 MG CAPSULE PO PRN (08:56)
[2018-06-17] MEDS ORDERED: SODIUM CHLORIDE 0.9% 1,000 ML IV PRN (08:56)
[2018-06-17] MEDS ORDERED: IRON POLYSACCHARIDE COMPLEX 150 MG PO SCH (09:00)
[2018-06-17] MEDS ORDERED: cloNIDine 0.1 MG TABLET PO SCH (09:00)
[2018-06-17] MEDS: PANTOPRAZOLE 40 MG TABLET PO SCH (09:09)
[2018-06-17] MEDS: CALCIUM ACETATE 667 MG CAPSULE PO SCH ×3 (09:09→16:56)
[2018-06-17] MEDS: SODIUM BICARBONATE 650 MG TABLET PO SCH ×3 (09:10→20:46)
[2018-06-17] MEDS: CALCITRIOL 0.25 MCG CAPSULE PO SCH ×2 (09:10→20:45)
[2018-06-17] MEDS: METOPROLOL SUCCINATE XL 50 MG TABLET PO SCH (09:10)
[2018-06-17] MEDS: GABAPENTIN 300 MG CAPSULE PO SCH ×3 (09:13→20:42)
[2018-06-17] MEDS: PANTOPRAZOLE 40 MG VIAL IV SCH ×2 (12:00→20:49)
[2018-06-17] MEDS: LACTULOSE 20 GM/30 ML UDCUP PO PRN (14:23)
[2018-06-17] MEDS: glipiZIDE 5 MG TABLET PO SCH (16:56)
[2018-06-17] MEDS ORDERED: hydrALAZINE 20 MG/1 ML VIAL IV PRN (17:40)
[2018-06-17] MEDS: METOPROLOL SUCCINATE XL 25 MG TABLET PO SCH (20:45)
[2018-06-17] MEDS: PRAVASTATIN 40 MG TABLET PO SCH (21:01)
[2018-06-17 23:06] LABS: Hematocrit 29.6 VOL% (35.7-47.0)
[2018-06-17 23:07] LABS: Hemoglobin 9.9 GM/DL (12.0-16.0)
[2018-06-18 04:45] LABS: Basophils % 0.2 % (0.0-0.8); Eosinophils # 0.3 10*3/uL (0.0-0.87); Eosinophils % 3.2 % (0.00-10.9); Hematocrit 27.9 VOL% (35.7-47.0); Hemoglobin 9.3 GM/DL (12.0-16.0); Immature Granulocytes % 0.7 %; Immature Granulocytes Absolute 0.07 #; Lymphocytes # 2.1 10*3/uL (1.4-4.0); Lymphocytes % 20.8 % (21.3-54.2); Mean Corpuscular HGB Conc 33.3 GM/DL (32-36); Mean Corpuscular Hemoglobin 29 PG (27-34); Mean Corpuscular Volume 87.5 FL (87-102); Mean Platelet Volume 9.9 FL (9.6-12.0); Monocytes # 0.5 10*3/uL (0.11-0.8); Monocytes % 4.6 % (1.7-12.7); NRBC # 0.02 10*3/uL; Neutrophils # 7.1 10*3/uL (1.4-7.4); Neutrophils % 70.5 % (38.7-73.9); Red Blood Count 3.19 MC/CUMM (3.8-5.5); Red Cell Distribution Width 15.4 % (9.3-17.3)
[2018-06-18 04:49] LABS: INR 0.9; PT Patient Result 9.9 SECS
[2018-06-18 04:52] LABS: Platelet Count 89 T/CUMM (130-400)
[2018-06-18 05:09] LABS: Platelet Estimate Decreased; Polychromasia Few
[2018-06-18 05:11] LABS: Microcytosis 1+
[2018-06-18 05:36] LABS: Albumin 2.2 G/DL (3.4-5.0); Bilirubin,Total 0.7 MG/DL (0.2-1.0); Calcium 10.3 MG/DL (8.5-10.1); Osmolality,Calculated 326.6 MOS/KG (273-304); Potassium 3.8 MMOL/L (3.5-5.1); Total Protein 4.5 G/DL (6.4-8.3)
[2018-06-18] MEDS: LEVOTHYROXINE 112 MCG TABLET PO SCH (06:43)
[2018-06-18] MEDS: INSULIN REGULAR 100 UNIT/ML SUBCUT SCH ×3 (07:30→20:42)
[2018-06-18] MEDS ORDERED: SODIUM CHLORIDE 0.45% 1,000 ML IV SCH (10:30)
[2018-06-18] MEDS: CALCIUM ACETATE 667 MG CAPSULE PO SCH ×3 (11:19→20:43)
[2018-06-18] MEDS: glipiZIDE 5 MG TABLET PO SCH ×2 (11:19→20:43)
[2018-06-18] MEDS: CALCITRIOL 0.25 MCG CAPSULE PO SCH ×2 (11:21→21:05)
[2018-06-18] MEDS: GABAPENTIN 300 MG CAPSULE PO SCH ×3 (11:21→21:05)
[2018-06-18] MEDS: SODIUM BICARBONATE 650 MG TABLET PO SCH ×3 (11:22→21:05)
[2018-06-18] MEDS: METOPROLOL SUCCINATE XL 50 MG TABLET PO SCH (11:22)
[2018-06-18] MEDS ORDERED: PROPOFOL 200 MG/20 ML VIAL IV ONE (13:22)
[2018-06-18] MEDS ORDERED: LIDOCAINE 100 MG/5 ML SYRINGE ONE (13:22)
[2018-06-18] MEDS ORDERED: PANTOPRAZOLE 40 MG TABLET PO SCH (19:00)
[2018-06-18] MEDS: METOPROLOL SUCCINATE XL 25 MG TABLET PO SCH (21:04)
[2018-06-18] MEDS: PRAVASTATIN 40 MG TABLET PO SCH (21:05)
[2018-06-19 04:48] LABS: Basophils % 0.2 % (0.0-0.8); Eosinophils # 0.4 10*3/uL (0.0-0.87); Eosinophils % 4.2 % (0.00-10.9); Hematocrit 28.1 VOL% (35.7-47.0); Hemoglobin 9.2 GM/DL (12.0-16.0); Immature Granulocytes Absolute 0.09 #; Lymphocytes # 1.2 10*3/uL (1.4-4.0); Lymphocytes % 13.1 % (21.3-54.2); Mean Corpuscular HGB Conc 32.7 GM/DL (32-36); Mean Corpuscular Hemoglobin 30 PG (27-34); Mean Corpuscular Volume 90.1 FL (87-102); Mean Platelet Volume 10.1 FL (9.6-12.0); Monocytes # 0.5 10*3/uL (0.11-0.8); Monocytes % 4.8 % (1.7-12.7); Neutrophils # 7.3 10*3/uL (1.4-7.4); Neutrophils % 76.7 % (38.7-73.9); Platelet Count 97 T/CUMM (130-400); Red Blood Count 3.12 MC/CUMM (3.8-5.5); Red Cell Distribution Width 15.8 % (9.3-17.3); White Blood Count 9.5 T/CUMM (4-12)
[2018-06-19 05:10] LABS: Albumin 2.3 G/DL (3.4-5.0); Bilirubin,Total 0.4 MG/DL (0.2-1.0); Calcium 10.5 MG/DL (8.5-10.1); Osmolality,Calculated 323.7 MOS/KG (273-304); Potassium 3.8 MMOL/L (3.5-5.1); Total Protein 4.8 G/DL (6.4-8.3)
[2018-06-19 05:11] LABS: Eosinophils 7 % (0-10); Hypochromasia 1+; Lymphocytes 9 % (20-55); Platelet Estimate Decreased; Segmented Neutrophils 82 % (50-85); Total Cells Counted 100
[2018-06-19 05:12] LABS: Microcytosis Slight
[2018-06-19] MEDS ORDERED: CLOPIDOGREL 75 MG TABLET PO SCH (09:00)
[2018-06-19] MEDS ORDERED: ASPIRIN EC 81 MG TABLET PO SCH (09:00)
[2018-06-19] MEDS ORDERED: FERROUS SULFATE 325 MG TABLET PO SCH (09:00)
[2018-06-19] MEDS ORDERED: LISINOPRIL 20 MG TABLET PO SCH (09:00)
[2018-06-19] MEDS: INSULIN REGULAR 100 UNIT/ML SUBCUT SCH ×2 (09:46→12:53)
[2018-06-19 11:43] VITALS: BP 127/55
[2018-06-19] MEDS: LEVOTHYROXINE 112 MCG TABLET PO SCH (12:42)
[2018-06-19] MEDS: SODIUM BICARBONATE 650 MG TABLET PO SCH (12:43)
[2018-06-19] MEDS: METOPROLOL SUCCINATE XL 50 MG TABLET PO SCH (12:44)
[2018-06-19] MEDS: glipiZIDE 5 MG TABLET PO SCH (12:44)
[2018-06-19] MEDS: GABAPENTIN 300 MG CAPSULE PO SCH (12:44)
[2018-06-19] MEDS: CALCIUM ACETATE 667 MG CAPSULE PO SCH ×2 (12:45)
[2018-06-19] MEDS: CALCITRIOL 0.25 MCG CAPSULE PO SCH (12:51)
== END 2018-06-19 13:05 | disposition home or self-care (01) | DRG 812 ==
LOC: N.ED 22:15 → N.EDINP 06-16 02:22 → SUATTDRO 06-16 02:22 → N.CC 06-16 06:31 → N.3E 06-16 18:01 → N.CC 06-17 08:17 → N.4E 06-18 15:44
PROVIDERS: ADMIT Internal Medicine; ATTEND Emergency Medicine

== ENCOUNTER 2018-07-03 10:47 | Inpatient (IN) ==
[2018-07-03] MEDS ORDERED: ACETAMINOPHEN 325 MG TABLET PO PRN (14:28)
[2018-07-03] MEDS ORDERED: DEXTROSE 50% 25 GM/50 ML VIAL IV PRN (14:28)
[2018-07-03] MEDS ORDERED: GLUCAGON 1 MG VIAL IM PRN (14:28)
[2018-07-03] MEDS ORDERED: ONDANSETRON 4 MG/2 ML VIAL IV PRN (14:28)
[2018-07-03 15:45] LABS: Basophils % 0.1 % (0.0-0.8); Eosinophils # 0.2 10*3/uL (0.0-0.87); Eosinophils % 2.8 % (0.00-10.9); Hematocrit 26.4 VOL% (35.7-47.0); Hemoglobin 8.3 GM/DL (12.0-16.0); Immature Granulocytes Absolute 0.08 #; Lymphocytes # 1.3 10*3/uL (1.4-4.0); Mean Corpuscular HGB Conc 31.4 GM/DL (32-36); Mean Corpuscular Hemoglobin 29 PG (27-34); Mean Corpuscular Volume 92.3 FL (87-102); Mean Platelet Volume 9.6 FL (9.6-12.0); Monocytes # 0.4 10*3/uL (0.11-0.8); Monocytes % 4.8 % (1.7-12.7); Neutrophils # 5.8 10*3/uL (1.4-7.4); Neutrophils % 74.3 % (38.7-73.9); Platelet Count 240 T/CUMM (130-400); Red Blood Count 2.86 MC/CUMM (3.8-5.5); Red Cell Distribution Width 14.6 % (9.3-17.3); White Blood Count 7.8 T/CUMM (4-12)
[2018-07-03 15:56] LABS: Calcium 10.3 MG/DL (8.5-10.1); Osmolality,Calculated 293.8 MOS/KG (273-304); Potassium 3.2 MMOL/L (3.5-5.1)
[2018-07-03] MEDS: METOCLOPRAMIDE 10 MG/10 ML UDCUP PO SCH ×2 (16:44→21:21)
[2018-07-03] MEDS: CALCIUM ACETATE 667 MG CAPSULE PO SCH (16:45)
[2018-07-03] MEDS: INSULIN REGULAR 100 UNIT/ML SUBCUT SCH (16:46)
[2018-07-03] MEDS ORDERED: PRAVASTATIN 40 MG TABLET PO SCH (21:00)
[2018-07-03] MEDS ORDERED: IRON POLYSACCHARIDE COMPLEX 150 MG PO SCH (21:00)
[2018-07-03] MEDS: cloNIDine 0.1 MG TABLET PO SCH (21:20)
[2018-07-03] MEDS: CALCITRIOL 0.25 MCG CAPSULE PO SCH (21:20)
[2018-07-03] MEDS: PANTOPRAZOLE 40 MG TABLET PO SCH (21:21)
[2018-07-04] MEDS: INSULIN REGULAR 100 UNIT/ML SUBCUT SCH ×5 (00:24→21:39)
[2018-07-04 05:22] LABS: Basophils % 0.3 % (0.0-0.8); Eosinophils # 0.2 10*3/uL (0.0-0.87); Eosinophils % 2.6 % (0.00-10.9); Hematocrit 23.3 VOL% (35.7-47.0); Hemoglobin 7.4 GM/DL (12.0-16.0); Immature Granulocytes % 0.5 %; Immature Granulocytes Absolute 0.04 #; Lymphocytes # 1.2 10*3/uL (1.4-4.0); Lymphocytes % 15.1 % (21.3-54.2); Mean Corpuscular HGB Conc 31.8 GM/DL (32-36); Mean Corpuscular Hemoglobin 29 PG (27-34); Mean Corpuscular Volume 92.5 FL (87-102); Mean Platelet Volume 9.8 FL (9.6-12.0); Monocytes # 0.5 10*3/uL (0.11-0.8); Monocytes % 5.9 % (1.7-12.7); Neutrophils # 5.9 10*3/uL (1.4-7.4); Neutrophils % 75.6 % (38.7-73.9); Platelet Count 207 T/CUMM (130-400); Red Blood Count 2.52 MC/CUMM (3.8-5.5); Red Cell Distribution Width 14.5 % (9.3-17.3); White Blood Count 7.8 T/CUMM (4-12)
[2018-07-04 05:33] LABS: INR 0.9; PT Patient Result 9.7 SECS; Partial Thromboplastin Time 25.8 SECS (0-40)
[2018-07-04 05:47] LABS: Osmolality,Calculated 298.6 MOS/KG (273-304); Potassium 2.9 MMOL/L (3.5-5.1); Thyroid Stimulating Hormone 7.16 uIU/ml (0.358-3.74)
[2018-07-04 06:28] LABS: Hepatitis A Ab IgM Quant 0.11 Index; Hepatitis A Ab IgM Result Negative (Negative); Hepatitis B Core IgM Quant < 0.05 Index; Hepatitis B Core IgM Result Negative (Negative); Hepatitis B Surface Ag Quant < 0.10 Index; Hepatitis B Surface Ag Result Negative (Negative); Hepatitis C Virus Ab Quant 0.03 Index; Hepatitis C Virus Ab Result Negative (Negative)
[2018-07-04] MEDS: LEVOTHYROXINE 112 MCG TABLET PO SCH (07:00)
[2018-07-04] MEDS: METOCLOPRAMIDE 10 MG/10 ML UDCUP PO SCH ×4 (08:07→21:31)
[2018-07-04] MEDS: cloNIDine 0.1 MG TABLET PO SCH ×2 (08:07→21:30)
[2018-07-04] MEDS: CALCIUM ACETATE 667 MG CAPSULE PO SCH ×3 (08:07→18:30)
[2018-07-04] MEDS: LISINOPRIL 20 MG TABLET PO SCH (08:07)
[2018-07-04] MEDS: ASPIRIN EC 81 MG TABLET PO SCH (08:07)
[2018-07-04] MEDS: METOPROLOL SUCCINATE XL 50 MG TABLET PO SCH (08:08)
[2018-07-04] MEDS: CALCITRIOL 0.25 MCG CAPSULE PO SCH ×2 (08:08→21:31)
[2018-07-04] MEDS: PANTOPRAZOLE 40 MG TABLET PO SCH ×2 (08:08→21:31)
[2018-07-04] MEDS: SODIUM BICARBONATE 650 MG TABLET PO SCH (08:08)
[2018-07-04] MEDS ORDERED: PANTOPRAZOLE 40 MG TABLET PO SCH (09:00)
[2018-07-04] MEDS: POTASSIUM CHLORIDE 20 MEQ TABLET PO SCH ×2 (09:26→21:31)
[2018-07-04] MEDS ORDERED: LIDOCAINE 1%/EPI INJ 20 ML VIAL ONE (10:00)
[2018-07-04] MEDS ORDERED: HEPARIN 5,000 UNIT/1 ML VIAL ONE (10:00)
[2018-07-04] MEDS ORDERED: BUPIVACAINE 0.5% /EPI 10 ML VIAL ONE (10:00)
[2018-07-04] MEDS: SODIUM CHLORIDE 0.9% 250 ML IV SCH ×2 (11:00→23:30)
[2018-07-04] MEDS ORDERED: fentaNYL 100 MCG/2 ML VIAL ONE (11:21)
[2018-07-04] MEDS ORDERED: PROPOFOL 200 MG/20 ML VIAL IV ONE (11:21)
[2018-07-04] MEDS ORDERED: MIDAZOLAM 2 MG/2 ML VIAL ONE (11:22)
[2018-07-04] MEDS ORDERED: ONDANSETRON 4 MG/2 ML VIAL ONE (11:22)
[2018-07-04] MEDS ORDERED: HEPARIN 10,000 UNIT/10 ML VIAL IV SCH (17:00)
[2018-07-04] MEDS: SIMVASTATIN 20 MG TABLET PO SCH (21:30)
[2018-07-04] MEDS: GABAPENTIN 300 MG CAPSULE PO PRN (21:39)
[2018-07-05] MEDS: LEVOTHYROXINE 112 MCG TABLET PO SCH (06:29)
[2018-07-05 06:40] LABS: Calcium 9.1 MG/DL (8.5-10.1); Osmolality,Calculated 287.1 MOS/KG (273-304); Potassium 4.2 MMOL/L (3.5-5.1)
[2018-07-05 08:15] LABS: Basophils % 0.3 % (0.0-0.8); Eosinophils # 0.2 10*3/uL (0.0-0.87); Eosinophils % 3.2 % (0.00-10.9); Hematocrit 26.3 VOL% (35.7-47.0); Hemoglobin 8.2 GM/DL (12.0-16.0); Immature Granulocytes % 0.8 %; Immature Granulocytes Absolute 0.06 #; Lymphocytes # 1.5 10*3/uL (1.4-4.0); Lymphocytes % 20.2 % (21.3-54.2); Mean Corpuscular HGB Conc 31.2 GM/DL (32-36); Mean Corpuscular Hemoglobin 30 PG (27-34); Mean Corpuscular Volume 95.3 FL (87-102); Mean Platelet Volume 9.8 FL (9.6-12.0); Monocytes # 0.5 10*3/uL (0.11-0.8); Monocytes % 6.4 % (1.7-12.7); Neutrophils % 69.1 % (38.7-73.9); Platelet Count 226 T/CUMM (130-400); Red Blood Count 2.76 MC/CUMM (3.8-5.5); Red Cell Distribution Width 14.5 % (9.3-17.3); White Blood Count 7.2 T/CUMM (4-12)
[2018-07-05] MEDS: CALCIUM ACETATE 667 MG CAPSULE PO SCH ×3 (13:19→16:32)
[2018-07-05] MEDS: INSULIN REGULAR 100 UNIT/ML SUBCUT SCH ×4 (13:19→22:22)
[2018-07-05] MEDS: METOCLOPRAMIDE 10 MG/10 ML UDCUP PO SCH ×4 (13:19→22:22)
[2018-07-05] MEDS: SODIUM CHLORIDE 0.9% 250 ML IV SCH (13:20)
[2018-07-05] MEDS: CALCITRIOL 0.25 MCG CAPSULE PO SCH ×2 (14:06→22:18)
[2018-07-05] MEDS: LISINOPRIL 20 MG TABLET PO SCH (14:07)
[2018-07-05] MEDS: METOPROLOL SUCCINATE XL 50 MG TABLET PO SCH (14:07)
[2018-07-05] MEDS: cloNIDine 0.1 MG TABLET PO SCH ×2 (14:08→22:18)
[2018-07-05] MEDS: ASPIRIN EC 81 MG TABLET PO SCH (14:08)
[2018-07-05] MEDS: SODIUM BICARBONATE 650 MG TABLET PO SCH (14:08)
[2018-07-05] MEDS: PANTOPRAZOLE 40 MG TABLET PO SCH ×2 (14:09→22:18)
[2018-07-05] MEDS: SIMVASTATIN 20 MG TABLET PO SCH (22:18)
[2018-07-05] MEDS: GABAPENTIN 300 MG CAPSULE PO PRN (22:26)
[2018-07-06 05:36] LABS: Basophils % 0.3 % (0.0-0.8); Eosinophils # 0.2 10*3/uL (0.0-0.87); Eosinophils % 3.3 % (0.00-10.9); Hematocrit 24.5 VOL% (35.7-47.0); Hemoglobin 7.8 GM/DL (12.0-16.0); Immature Granulocytes % 1.6 %; Immature Granulocytes Absolute 0.12 #; Lymphocytes # 1.7 10*3/uL (1.4-4.0); Lymphocytes % 23.1 % (21.3-54.2); Mean Corpuscular HGB Conc 31.8 GM/DL (32-36); Mean Corpuscular Hemoglobin 30 PG (27-34); Mean Corpuscular Volume 93.5 FL (87-102); Mean Platelet Volume 9.6 FL (9.6-12.0); Monocytes # 0.5 10*3/uL (0.11-0.8); Monocytes % 6.9 % (1.7-12.7); Neutrophils # 4.8 10*3/uL (1.4-7.4); Neutrophils % 64.8 % (38.7-73.9); Platelet Count 231 T/CUMM (130-400); Red Blood Count 2.62 MC/CUMM (3.8-5.5); Red Cell Distribution Width 14.5 % (9.3-17.3); White Blood Count 7.4 T/CUMM (4-12)
[2018-07-06 06:10] LABS: Calcium 9.3 MG/DL (8.5-10.1); Osmolality,Calculated 287.3 MOS/KG (273-304); Potassium 4.1 MMOL/L (3.5-5.1)
[2018-07-06] MEDS: LEVOTHYROXINE 112 MCG TABLET PO SCH (07:08)
[2018-07-06] MEDS: INSULIN REGULAR 100 UNIT/ML SUBCUT SCH ×3 (08:00→16:29)
[2018-07-06] MEDS ORDERED: CLOPIDOGREL 75 MG TABLET PO SCH (09:00)
[2018-07-06] MEDS: cloNIDine 0.1 MG TABLET PO SCH (09:00)
[2018-07-06] MEDS: LISINOPRIL 20 MG TABLET PO SCH (09:00)
[2018-07-06] MEDS: ASPIRIN EC 81 MG TABLET PO SCH (09:30)
[2018-07-06] MEDS: METOCLOPRAMIDE 10 MG/10 ML UDCUP PO SCH ×3 (09:47→16:30)
[2018-07-06] MEDS: GABAPENTIN 300 MG CAPSULE PO PRN (09:48)
[2018-07-06] MEDS: CALCIUM ACETATE 667 MG CAPSULE PO SCH ×3 (09:49→16:29)
[2018-07-06] MEDS: CALCITRIOL 0.25 MCG CAPSULE PO SCH (09:49)
[2018-07-06] MEDS: SODIUM BICARBONATE 650 MG TABLET PO SCH (09:49)
[2018-07-06] MEDS: PANTOPRAZOLE 40 MG TABLET PO SCH (09:50)
[2018-07-06] MEDS: SODIUM CHLORIDE 0.9% 250 ML IV SCH (12:01)
[2018-07-06] MEDS: METOPROLOL SUCCINATE XL 50 MG TABLET PO SCH (12:02)
[2018-07-06] MEDS ORDERED: BISACODYL 10 MG SUPP RECTAL PRN (14:15)
[2018-07-06 17:22] VITALS: BP 98/60
== END 2018-07-06 19:09 | disposition home or self-care (01) | DRG 673 ==
LOC: SUATTDRO 11:47 → N.5E 11:47
PROVIDERS: ADMIT Internal Medicine; ATTEND Internal Medicine

== ENCOUNTER 2018-07-18 16:01 | Inpatient (IN) ==
[2018-07-18 17:02] LABS: Basophils % 0.1 % (0.0-0.8); Eosinophils # 0.1 10*3/uL (0.0-0.87); Eosinophils % 1.5 % (0.00-10.9); Hematocrit 26.8 VOL% (35.7-47.0); Hemoglobin 8.6 GM/DL (12.0-16.0); Immature Granulocytes % 0.5 %; Immature Granulocytes Absolute 0.04 #; Lymphocytes % 25.2 % (21.3-54.2); Mean Corpuscular HGB Conc 32.1 GM/DL (32-36); Mean Corpuscular Hemoglobin 30 PG (27-34); Mean Corpuscular Volume 93.7 FL (87-102); Mean Platelet Volume 9.2 FL (9.6-12.0); Monocytes # 0.4 10*3/uL (0.11-0.8); Monocytes % 4.9 % (1.7-12.7); NRBC # 0.09 10*3/uL; Neutrophils # 5.5 10*3/uL (1.4-7.4); Neutrophils % 67.8 % (38.7-73.9); Platelet Count 295 T/CUMM (130-400); Red Blood Count 2.86 MC/CUMM (3.8-5.5); Red Cell Distribution Width 15.4 % (9.3-17.3)
[2018-07-18 17:12] LABS: INR 0.9; Partial Thromboplastin Time 22.6 SECS (0-40)
[2018-07-18 17:23] LABS: Bilirubin,Total 0.4 MG/DL (0.2-1.0); Calcium 9.6 MG/DL (8.5-10.1); Osmolality,Calculated 279.4 MOS/KG (273-304); Potassium 3.5 MMOL/L (3.5-5.1); Total Protein 7.4 G/DL (6.4-8.3)
[2018-07-18] MEDS ORDERED: GABAPENTIN 300 MG CAPSULE PO PRN (17:59)
[2018-07-18 18:13] LABS: Sedimentation Rate-Westergren 89 MM/HR (0-30)
[2018-07-18] MEDS: CALCITRIOL 0.25 MCG CAPSULE PO SCH (20:48)
[2018-07-18] MEDS: cloNIDine 0.1 MG TABLET PO SCH (21:33)
[2018-07-18] MEDS: SIMVASTATIN 20 MG TABLET PO SCH (21:33)
[2018-07-18] MEDS: PANTOPRAZOLE 40 MG TABLET PO SCH (21:33)
[2018-07-19 05:06] LABS: Basophils % 0.1 % (0.0-0.8); Eosinophils # 0.2 10*3/uL (0.0-0.87); Eosinophils % 2.4 % (0.00-10.9); Hematocrit 23.3 VOL% (35.7-47.0); Hemoglobin 7.2 GM/DL (12.0-16.0); Immature Granulocytes % 0.6 %; Immature Granulocytes Absolute 0.05 #; Lymphocytes # 1.5 10*3/uL (1.4-4.0); Lymphocytes % 19.7 % (21.3-54.2); Mean Corpuscular HGB Conc 30.9 GM/DL (32-36); Mean Corpuscular Hemoglobin 29 PG (27-34); Mean Corpuscular Volume 93.2 FL (87-102); Mean Platelet Volume 9.4 FL (9.6-12.0); Monocytes # 0.5 10*3/uL (0.11-0.8); NRBC # 0.04 10*3/uL; Neutrophils # 5.5 10*3/uL (1.4-7.4); Neutrophils % 71.2 % (38.7-73.9); Platelet Count 258 T/CUMM (130-400); Red Cell Distribution Width 15.9 % (9.3-17.3); White Blood Count 7.8 T/CUMM (4-12)
[2018-07-19 05:32] LABS: Albumin 2.7 G/DL (3.4-5.0); Calcium 9.1 MG/DL (8.5-10.1); Osmolality,Calculated 283.4 MOS/KG (273-304); Total Protein 6.3 G/DL (6.4-8.3)
[2018-07-19] MEDS ORDERED: LEVOTHYROXINE 112 MCG TABLET PO SCH (06:30)
[2018-07-19] MEDS: LEVOTHYROXINE 100 MCG TABLET PO SCH (06:35)
[2018-07-19] MEDS ORDERED: SODIUM CHLORIDE 0.9% 1,000 ML IV PRN (07:22)
[2018-07-19] MEDS: METOCLOPRAMIDE 10 MG/10 ML UDCUP PO SCH ×2 (07:55→17:01)
[2018-07-19] MEDS ORDERED: CALCIUM ACETATE 667 MG CAPSULE PO SCH ×2 (08:00→21:00)
[2018-07-19] MEDS ORDERED: LISINOPRIL 20 MG TABLET PO SCH (09:00)
[2018-07-19] MEDS ORDERED: CLOPIDOGREL 75 MG TABLET PO SCH ×2 (09:00→21:00)
[2018-07-19] MEDS: glipiZIDE 5 MG TABLET PO SCH ×2 (10:03→17:01)
[2018-07-19] MEDS: PANTOPRAZOLE 40 MG TABLET PO SCH ×2 (10:03→21:32)
[2018-07-19] MEDS: METOPROLOL SUCCINATE XL 50 MG TABLET PO SCH (10:03)
[2018-07-19] MEDS: ASPIRIN EC 81 MG TABLET PO SCH (10:03)
[2018-07-19] MEDS: CALCITRIOL 0.25 MCG CAPSULE PO SCH ×2 (10:03→21:19)
[2018-07-19] MEDS: cloNIDine 0.1 MG TABLET PO SCH ×2 (10:03→21:33)
[2018-07-19] MEDS: SODIUM BICARBONATE 650 MG TABLET PO SCH (10:04)
[2018-07-19] MEDS: INSULIN REGULAR 100 UNIT/ML SUBCUT SCH ×3 (15:14→21:35)
[2018-07-19] MEDS ORDERED: HEPARIN 10,000 UNIT/10 ML VIAL IV SCH (21:00)
[2018-07-19] MEDS ORDERED: INSULIN GLARGINE 100 UNIT/ML SUBCUT SCH (21:00)
[2018-07-19] MEDS: SIMVASTATIN 20 MG TABLET PO SCH (21:33)
[2018-07-20 05:25] LABS: Risk Ratio 3.41; VLDL CHOLESTEROL 28.4 MG/DL
[2018-07-20] MEDS: LEVOTHYROXINE 100 MCG TABLET PO SCH (05:45)
[2018-07-20] MEDS: INSULIN REGULAR 100 UNIT/ML SUBCUT SCH ×2 (09:44→12:16)
[2018-07-20] MEDS: cloNIDine 0.1 MG TABLET PO SCH (09:45)
[2018-07-20] MEDS: METOCLOPRAMIDE 10 MG/10 ML UDCUP PO SCH (09:48)
[2018-07-20] MEDS: glipiZIDE 5 MG TABLET PO SCH (09:49)
[2018-07-20] MEDS: ASPIRIN EC 81 MG TABLET PO SCH (09:49)
[2018-07-20] MEDS: METOPROLOL SUCCINATE XL 50 MG TABLET PO SCH (09:49)
[2018-07-20] MEDS: PANTOPRAZOLE 40 MG TABLET PO SCH (09:50)
[2018-07-20] MEDS: SODIUM BICARBONATE 650 MG TABLET PO SCH (09:51)
[2018-07-20 12:12] VITALS: BP 109/57
[2018-07-21] MEDS ORDERED: CALCITRIOL 0.5 MCG CAPSULE PO SCH (09:00)
== END 2018-07-20 12:35 | disposition home or self-care (01) | DRG 123 ==
LOC: N.ED 16:01 → N.EDINP 17:57 → SUATTDRO 17:57 → N.3E 19:28
PROVIDERS: ADMIT Internal Medicine; ATTEND Internal Medicine Nephrology

== ENCOUNTER 2018-09-10 02:19 | Observation (INO) ==
[2018-09-10 04:23] LABS: Basophils % 0.2 % (0.0-0.8); Eosinophils # 0.1 10*3/uL (0.0-0.87); Eosinophils % 1.7 % (0.00-10.9); Hemoglobin 6.7 GM/DL (12.0-16.0); Immature Granulocytes % 0.7 %; Immature Granulocytes Absolute 0.06 #; Lymphocytes # 1.1 10*3/uL (1.4-4.0); Lymphocytes % 13.8 % (21.3-54.2); Mean Corpuscular HGB Conc 31.9 GM/DL (32-36); Mean Corpuscular Hemoglobin 33 PG (27-34); Mean Corpuscular Volume 101.9 FL (87-102); Mean Platelet Volume 10.7 FL (9.6-12.0); Monocytes # 0.3 10*3/uL (0.11-0.8); Monocytes % 4.2 % (1.7-12.7); Neutrophils # 6.5 10*3/uL (1.4-7.4); Neutrophils % 79.4 % (38.7-73.9); Platelet Count 180 T/CUMM (130-400); Red Blood Count 2.06 MC/CUMM (3.8-5.5); White Blood Count 8.2 T/CUMM (4-12)
[2018-09-10 04:35] LABS: INR 0.9; Partial Thromboplastin Time 21.6 SECS (0-40)
[2018-09-10 04:41] LABS: Alanine Aminotransferase 14 U/L (13-56); Albumin 2.7 G/DL (3.4-5.0); Alkaline Phosphatase 60 U/L (45-117); Aspartate Amino Transferase 13 U/L (0-37); Bilirubin,Total < 0.39 MG/DL (0.2-1.0); Blood Urea Nitrogen 39 MG/DL (7-18); Calcium 8.6 MG/DL (8.5-10.1); Glucose 313 MG/DL (74-106); Osmolality,Calculated 303.1 MOS/KG (273-304); Potassium 3.2 MMOL/L (3.5-5.1); Sodium 142 MMOL/L (136-145); Total Protein 5.8 G/DL (6.4-8.3)
[2018-09-10] MEDS ORDERED: NICOTINE 21 MG/24 HR PATCH TRANSDERM PRN (05:31)
[2018-09-10] MEDS ORDERED: ONDANSETRON 4 MG/2 ML VIAL IV PRN (05:31)
[2018-09-10] MEDS ORDERED: DEXTROSE 50% 25 GM/50 ML SYRINGE IV PRN (05:31)
[2018-09-10] MEDS ORDERED: BISACODYL 5 MG TABLET PO PRN (05:31)
[2018-09-10] MEDS ORDERED: diphenhydrAMINE CAP 25 MG CAPSULE PO PRN (05:31)
[2018-09-10] MEDS ORDERED: MORPHINE 4 MG/1 ML VIAL IV PRN (05:31)
[2018-09-10] MEDS ORDERED: ACETAMINOPHEN 325 MG TABLET PO PRN (05:31)
[2018-09-10] MEDS ORDERED: GLUCAGON 1 MG VIAL IM PRN (05:31)
[2018-09-10] MEDS: PANTOPRAZOLE 40 MG VIAL IV SCH ×3 (06:00→21:57)
[2018-09-10] MEDS: INSULIN REGULAR 100 UNIT/ML SUBCUT SCH ×3 (09:41→18:54)
[2018-09-10 10:18] LABS: Hematocrit 20.5 VOL% (35.7-47.0); Hemoglobin 6.7 GM/DL (12.0-16.0)
[2018-09-10 11:32] LABS: Hematocrit 20.9 VOL% (35.7-47.0); Hemoglobin 6.9 GM/DL (12.0-16.0)
[2018-09-10] MEDS ORDERED: SODIUM CHLORIDE 0.9% 1,000 ML IV PRN (14:31)
[2018-09-10 15:04] LABS: Hemoglobin 6.8 GM/DL (12.0-16.0)
[2018-09-10 15:57] LABS: Hepatitis A Ab IgM Quant 0.17 Index; Hepatitis A Ab IgM Result Negative (Negative); Hepatitis B Core IgM Quant 0.12 Index; Hepatitis B Core IgM Result Negative (Negative); Hepatitis B Surface Ag Quant < 0.10 Index; Hepatitis B Surface Ag Result Negative (Negative); Hepatitis C Virus Ab Quant 0.07 Index; Hepatitis C Virus Ab Result Negative (Negative)
[2018-09-10] MEDS ORDERED: HEPARIN 10,000 UNIT/10 ML VIAL IV PRN (16:55)
[2018-09-10 19:05] LABS: Hemoglobin 10.5 GM/DL (12.0-16.0)
[2018-09-10] MEDS: MUPIROCIN 2% OINT 22 GM TUBE TOP SCH (21:59)
[2018-09-11] MEDS: INSULIN REGULAR 100 UNIT/ML SUBCUT SCH ×3 (00:41→11:49)
[2018-09-11 05:15] LABS: Basophils % 0.3 % (0.0-0.8); Eosinophils # 0.2 10*3/uL (0.0-0.87); Hematocrit 31.2 VOL% (35.7-47.0); Hemoglobin 10.3 GM/DL (12.0-16.0); Immature Granulocytes % 0.9 %; Immature Granulocytes Absolute 0.06 #; Lymphocytes # 1.9 10*3/uL (1.4-4.0); Lymphocytes % 28.4 % (21.3-54.2); Mean Corpuscular Hemoglobin 30 PG (27-34); Mean Corpuscular Volume 91.2 FL (87-102); Mean Platelet Volume 9.5 FL (9.6-12.0); Monocytes # 0.5 10*3/uL (0.11-0.8); Monocytes % 6.7 % (1.7-12.7); Neutrophils # 4.1 10*3/uL (1.4-7.4); Neutrophils % 60.7 % (38.7-73.9); Platelet Count 145 T/CUMM (130-400); Red Blood Count 3.42 MC/CUMM (3.8-5.5); Red Cell Distribution Width 19.5 % (9.3-17.3); White Blood Count 6.8 T/CUMM (4-12)
[2018-09-11] MEDS: PANTOPRAZOLE 40 MG VIAL IV SCH (09:15)
[2018-09-11] MEDS: MUPIROCIN 2% OINT 22 GM TUBE TOP SCH (09:21)
[2018-09-11] MEDS ORDERED: SODIUM CHLORIDE 0.9% 250 ML IV ONE (09:52)
[2018-09-11 11:20] VITALS: BP 86/31
== END 2018-09-11 12:15 | disposition home or self-care (01) ==
LOC: N.EDINP 02:19 → N.ED 02:19 → SUATTDRO 05:31 → N.3E 06:12
PROVIDERS: ADMIT Hospitalist; ATTEND Internal Medicine

== ENCOUNTER 2019-08-11 19:36 | Inpatient (IN) ==
[2019-08-11 20:40] LABS: Basophils % 0.3 % (0.0-0.8); Eosinophils # 0.1 10*3/uL (0.0-0.87); Eosinophils % 0.9 % (0.00-10.9); Hemoglobin 6.6 GM/DL (12.0-16.0); Immature Granulocytes % 0.7 %; Immature Granulocytes Absolute 0.05 #; Lymphocytes # 1.8 10*3/uL (1.4-4.0); Lymphocytes % 25.1 % (21.3-54.2); Mean Corpuscular Volume 103.1 FL (87-102); Monocytes % 6.9 % (1.7-12.7); Neutrophils % 66.1 % (38.7-73.9); Platelet Count 180 T/CUMM (130-400); Red Blood Count 1.94 MC/CUMM (3.8-5.5); Red Cell Distribution Width 15.4 % (9.3-17.3)
[2019-08-11] MEDS ORDERED: SODIUM CHLORIDE 0.9% 1,000 ML IV PRN (20:52)
[2019-08-11 21:07] LABS: Albumin 2.5 G/DL (3.4-5.0); Bilirubin,Total 0.5 MG/DL (0.2-1.0); Calcium 7.7 MG/DL (8.5-10.1); Osmolality,Calculated 325.4 MOS/KG (273-304); Total Protein 5.5 G/DL (6.4-8.3)
[2019-08-11] MEDS ORDERED: PANTOPRAZOLE 40 MG VIAL IV STA (22:19)
[2019-08-11] MEDS ORDERED: ACETAMINOPHEN 325 MG TABLET PO PRN (23:03)
[2019-08-11] MEDS ORDERED: NICOTINE 21 MG/24 HR PATCH TRANSDERM PRN (23:03)
[2019-08-11] MEDS ORDERED: ONDANSETRON 4 MG/2 ML VIAL IV PRN (23:03)
[2019-08-11] MEDS ORDERED: SODIUM CHLORIDE 0.9% 1,000 ML IV SCH (23:30)
[2019-08-12] MEDS ORDERED: DEXTROSE 50% 25 GM/50 ML SYRINGE IV PRN (00:49)
[2019-08-12] MEDS ORDERED: GLUCAGON 1 MG VIAL IM PRN (00:49)
[2019-08-12] MEDS ORDERED: INSULIN REGULAR 100 UNIT/ML SUBCUT SCH (01:00)
[2019-08-12 01:09] LABS: Albumin 2.4 G/DL (3.4-5.0); Bilirubin,Total 0.4 MG/DL (0.2-1.0); Osmolality,Calculated 330.8 MOS/KG (273-304); Total Protein 5.3 G/DL (6.4-8.3)
[2019-08-12 01:20] LABS: Basophils % 0.4 % (0.0-0.8); Eosinophils # 0.1 10*3/uL (0.0-0.87); Eosinophils % 1.4 % (0.00-10.9); Hematocrit 19.7 VOL% (35.7-47.0); Hemoglobin 6.5 GM/DL (12.0-16.0); Immature Granulocytes % 0.8 %; Immature Granulocytes Absolute 0.06 #; Lymphocytes # 1.7 10*3/uL (1.4-4.0); Lymphocytes % 23.6 % (21.3-54.2); Mean Corpuscular Volume 104.2 FL (87-102); Monocytes % 7.4 % (1.7-12.7); Neutrophils % 66.4 % (38.7-73.9); Platelet Count 179 T/CUMM (130-400); Red Blood Count 1.89 MC/CUMM (3.8-5.5); Red Cell Distribution Width 15.6 % (9.3-17.3); White Blood Count 7.3 T/CUMM (4-12)
[2019-08-12] MEDS ORDERED: SODIUM CHLORIDE 0.9% 500 ML IV ONE (03:09)
[2019-08-12] MEDS ORDERED: SODIUM CHLORIDE 0.9% 1,000 ML IV PRN ×3 (03:12→09:05)
[2019-08-12] MEDS ORDERED: MORPHINE 4 MG/1 ML VIAL IV ONE ×2 (07:29→07:33)
[2019-08-12] MEDS: INSULIN REGULAR 100 UNIT/ML SUBCUT SCH ×4 (07:59→21:57)
[2019-08-12] MEDS: PANTOPRAZOLE 40 MG VIAL IV SCH ×2 (08:50→22:04)
[2019-08-12] MEDS ORDERED: GABAPENTIN 300 MG CAPSULE PO PRN (14:48)
[2019-08-12 14:59] LABS: % Iron Saturation 62.6 % (18-50)
[2019-08-12] MEDS: CALCIUM ACETATE 667 MG CAPSULE PO SCH (16:53)
[2019-08-12] MEDS: SIMVASTATIN 10 MG TABLET PO SCH (22:07)
[2019-08-12] MEDS: allopurinoL 100 MG TABLET PO SCH (22:08)
[2019-08-12 22:16] LABS: Basophils % 0.3 % (0.0-0.8); Eosinophils # 0.1 10*3/uL (0.0-0.87); Eosinophils % 0.9 % (0.00-10.9); Hematocrit 27.9 VOL% (35.7-47.0); Hemoglobin 9.6 GM/DL (12.0-16.0); Immature Granulocytes % 1.3 %; Immature Granulocytes Absolute 0.13 #; Lymphocytes # 1.2 10*3/uL (1.4-4.0); Lymphocytes % 12.7 % (21.3-54.2); Mean Corpuscular HGB Conc 34.4 GM/DL (32-36); Mean Corpuscular Volume 93.3 FL (87-102); Mean Platelet Volume 9.7 FL (9.6-12.0); Neutrophils % 79.8 % (38.7-73.9); Platelet Count 119 T/CUMM (130-400); Red Blood Count 2.99 MC/CUMM (3.8-5.5); Red Cell Distribution Width 16.9 % (9.3-17.3); White Blood Count 9.7 T/CUMM (4-12)
[2019-08-12 22:40] LABS: Calcium 7.6 MG/DL (8.5-10.1); Osmolality,Calculated 285.8 MOS/KG (273-304)
[2019-08-13] MEDS: METOCLOPRAMIDE 10 MG/2 ML VIAL IV SCH ×4 (00:57→17:47)
[2019-08-13 05:23] LABS: Basophils % 0.4 % (0.0-0.8); Eosinophils # 0.3 10*3/uL (0.0-0.87); Eosinophils % 3.3 % (0.00-10.9); Hematocrit 25.9 VOL% (35.7-47.0); Hemoglobin 8.8 GM/DL (12.0-16.0); Immature Granulocytes % 1.1 %; Immature Granulocytes Absolute 0.09 #; Lymphocytes # 1.8 10*3/uL (1.4-4.0); Lymphocytes % 21.3 % (21.3-54.2); Mean Corpuscular Volume 94.2 FL (87-102); Monocytes % 5.8 % (1.7-12.7); Neutrophils % 68.1 % (38.7-73.9); Platelet Count 114 T/CUMM (130-400); Red Blood Count 2.75 MC/CUMM (3.8-5.5); Red Cell Distribution Width 17.1 % (9.3-17.3); White Blood Count 8.5 T/CUMM (4-12)
[2019-08-13 05:49] LABS: Calcium 7.6 MG/DL (8.5-10.1)
[2019-08-13] MEDS ORDERED: SODIUM CHLORIDE 0.9% 500 ML IV SCH (07:00)
[2019-08-13] MEDS: LEVOTHYROXINE 100 MCG TABLET PO SCH (08:31)
[2019-08-13] MEDS ORDERED: MAGNESIUM SULF RIDER 2 GM in PREMIX 1 EACH IV PRN (09:01)
[2019-08-13] MEDS ORDERED: MAGNESIUM SULF RIDER 4 GM in PREMIX 1 EACH IV PRN (09:01)
[2019-08-13] MEDS ORDERED: SODIUM CHLORIDE 0.9% 1,000 ML IV PRN (09:07)
[2019-08-13] MEDS ORDERED: LIDOCAINE 2% 5 ML VIAL ONE (10:00)
[2019-08-13] MEDS ORDERED: propofoL 200 MG/20 ML VIAL IV ONE (10:00)
[2019-08-13] MEDS ORDERED: EPINEPHrine 1 MG/ML VIAL ONE (10:02)
[2019-08-13] MEDS: CALCIUM ACETATE 667 MG CAPSULE PO SCH ×2 (11:05→17:47)
[2019-08-13] MEDS: PANTOPRAZOLE 40 MG VIAL IV SCH ×2 (11:12→22:55)
[2019-08-13] MEDS: INSULIN REGULAR 100 UNIT/ML SUBCUT SCH ×6 (11:22→22:58)
[2019-08-13 11:57] LABS: Hematocrit 26.4 VOL% (35.7-47.0); Hemoglobin 8.9 GM/DL (12.0-16.0)
[2019-08-13] MEDS ORDERED: INSULIN GLARGINE 100 UNIT/ML SUBCUT SCH (21:00)
[2019-08-13 21:22] LABS: Hematocrit 28.8 VOL% (35.7-47.0); Hemoglobin 9.6 GM/DL (12.0-16.0)
[2019-08-13] MEDS: allopurinoL 100 MG TABLET PO SCH (22:57)
[2019-08-13] MEDS: SIMVASTATIN 10 MG TABLET PO SCH (22:57)
[2019-08-14] MEDS: METOCLOPRAMIDE 10 MG/2 ML VIAL IV SCH ×3 (00:37→13:38)
[2019-08-14] MEDS: LEVOTHYROXINE 100 MCG TABLET PO SCH (05:47)
[2019-08-14 05:58] LABS: Basophils % 0.3 % (0.0-0.8); Eosinophils # 0.4 10*3/uL (0.0-0.87); Eosinophils % 5.2 % (0.00-10.9); Hemoglobin 9.6 GM/DL (12.0-16.0); Immature Granulocytes % 0.9 %; Immature Granulocytes Absolute 0.06 #; Lymphocytes # 1.4 10*3/uL (1.4-4.0); Lymphocytes % 20.5 % (21.3-54.2); Mean Corpuscular HGB Conc 33.1 GM/DL (32-36); Mean Corpuscular Volume 94.8 FL (87-102); Monocytes % 6.9 % (1.7-12.7); Neutrophils % 66.2 % (38.7-73.9); Platelet Count 113 T/CUMM (130-400); Red Blood Count 3.06 MC/CUMM (3.8-5.5); Red Cell Distribution Width 17.2 % (9.3-17.3)
[2019-08-14 06:16] LABS: Calcium 7.7 MG/DL (8.5-10.1); Osmolality,Calculated 306.8 MOS/KG (273-304)
[2019-08-14] MEDS: INSULIN REGULAR 100 UNIT/ML SUBCUT SCH ×3 (07:45→17:09)
[2019-08-14 08:15] VITALS: BP 113/41
[2019-08-14] MEDS: PANTOPRAZOLE 40 MG VIAL IV SCH (09:07)
[2019-08-14] MEDS: CALCIUM ACETATE 667 MG CAPSULE PO SCH ×2 (09:07→17:09)
[2019-08-14 10:17] LABS: Hematocrit 30.2 VOL% (35.7-47.0); Hemoglobin 9.8 GM/DL (12.0-16.0)
[2019-08-14] MEDS ORDERED: glipiZIDE 5 MG TABLET PO SCH (17:00)
[2019-08-14] MEDS ORDERED: CLOPIDOGREL 75 MG TABLET PO SCH (19:00)
[2019-08-14] MEDS ORDERED: METOPROLOL SUCCINATE XL 50 MG TABLET PO SCH (21:00)
[2019-08-15] MEDS ORDERED: ASPIRIN EC 81 MG TABLET PO SCH (09:00)
[2019-08-15] MEDS ORDERED: lisinopriL 10 MG TABLET PO SCH (09:00)
== END 2019-08-14 17:06 | disposition home or self-care (01) | DRG 377 ==
LOC: EDUNIT# → EDBD → N.ED 19:36 → N.EDINP 23:03 → SUATTDRO 23:03 → N.2E 08-12 00:14
PROVIDERS: ADMIT Internal Medicine; ATTEND Internal Medicine

== ENCOUNTER 2019-09-02 05:47 | Inpatient (IN) ==
[2019-09-02] MEDS ORDERED: DIAZEPAM 5 MG TABLET PO ONE (06:04)
[2019-09-02] MEDS ORDERED: POTASSIUM CHLORIDE RIDER 10 MEQ in PREMIX 1 EACH IV PRN (06:04)
[2019-09-02] MEDS ORDERED: ASPIRIN 325 MG TABLET PO ONE (06:04)
[2019-09-02] MEDS ORDERED: MAGNESIUM SULF RIDER 2 GM in PREMIX 1 EACH IV PRN (06:04)
[2019-09-02] MEDS ORDERED: diphenhydrAMINE CAP 25 MG CAPSULE PO ONE (06:04)
[2019-09-02] MEDS ORDERED: ASPIRIN 325 MG TABLET ONE (07:01)
[2019-09-02] MEDS ORDERED: DIAZEPAM 5 MG TABLET ONE (07:01)
[2019-09-02] MEDS ORDERED: diphenhydrAMINE CAP 25 MG CAPSULE ONE (07:02)
[2019-09-02] MEDS: SODIUM CHLORIDE 0.9% 1,000 ML IV SCH ×2 (07:05→17:00)
[2019-09-02 07:18] LABS: Basophils % 0.3 % (0.0-0.8); Eosinophils # 0.1 10*3/uL (0.0-0.87); Eosinophils % 1.6 % (0.00-10.9); Hematocrit 35.1 VOL% (35.7-47.0); Immature Granulocytes % 0.7 %; Immature Granulocytes Absolute 0.05 #; Lymphocytes % 15.1 % (21.3-54.2); Mean Corpuscular HGB Conc 31.3 GM/DL (32-36); Mean Corpuscular Volume 100.9 FL (87-102); Mean Platelet Volume 9.9 FL (9.6-12.0); NRBC # 0.03 10*3/uL; Neutrophils % 76.3 % (38.7-73.9); Platelet Count 180 T/CUMM (130-400); Red Blood Count 3.48 MC/CUMM (3.8-5.5); Red Cell Distribution Width 16.7 % (9.3-17.3); White Blood Count 6.8 T/CUMM (4-12)
[2019-09-02] MEDS ORDERED: LIDOCAINE 1% 20 ML VIAL ONE ×2 (07:25→10:01)
[2019-09-02] MEDS ORDERED: HYDROmorphone 2 MG/1 ML VIAL ONE (07:33)
[2019-09-02] MEDS ORDERED: MIDAZOLAM 2 MG/2 ML VIAL ONE (07:34)
[2019-09-02 07:39] LABS: Bilirubin,Total 1.1 MG/DL (0.2-1.0); Calcium 8.9 MG/DL (8.5-10.1); Osmolality,Calculated 286.5 MOS/KG (273-304); Total Protein 6.6 G/DL (6.4-8.3)
[2019-09-02] MEDS ORDERED: HEPARIN 5,000 UNIT/1 ML VIAL ONE (09:17)
[2019-09-02] MEDS ORDERED: VERAPAMIL 5 MG/2 ML VIAL ONE (10:24)
[2019-09-02] MEDS ORDERED: NITROGLYCERIN DRIP 50 MG/250 ML BOTTLE IV ONE (10:24)
[2019-09-02] MEDS ORDERED: SODIUM CHLORIDE 0.9% 500 ML IV ONE (11:40)
[2019-09-02] MEDS ORDERED: NALOXONE 0.4 MG/ML VIAL ONE (11:42)
[2019-09-02] MEDS ORDERED: flumazeniL 0.5 MG/5 ML VIAL IV ONE (11:42)
[2019-09-02] MEDS ORDERED: NALOXONE 0.4 MG/ML VIAL IV ONE (11:43)
[2019-09-02 15:44] LABS: Basophils % 0.3 % (0.0-0.8); Eosinophils # 0.2 10*3/uL (0.0-0.87); Eosinophils % 1.7 % (0.00-10.9); Hematocrit 34.5 VOL% (35.7-47.0); Hemoglobin 10.7 GM/DL (12.0-16.0); Immature Granulocytes % 0.8 %; Immature Granulocytes Absolute 0.07 #; Lymphocytes % 22.9 % (21.3-54.2); Mean Corpuscular Volume 103.9 FL (87-102); Mean Platelet Volume 9.8 FL (9.6-12.0); Monocytes % 6.9 % (1.7-12.7); NRBC # 0.03 10*3/uL; Neutrophils % 67.4 % (38.7-73.9); Platelet Count 180 T/CUMM (130-400); Red Blood Count 3.32 MC/CUMM (3.8-5.5); White Blood Count 8.9 T/CUMM (4-12)
[2019-09-02 16:11] LABS: Calcium 8.2 MG/DL (8.5-10.1); Osmolality,Calculated 282.5 MOS/KG (273-304)
[2019-09-02] MEDS: MUPIROCIN 2% OINT 22 GM TUBE TOP SCH (18:11)
[2019-09-02 19:43] LABS: Hematocrit 36.8 VOL% (35.7-47.0); Hemoglobin 11.8 GM/DL (12.0-16.0)
[2019-09-03] MEDS: SODIUM CHLORIDE 0.9% 1,000 ML IV SCH ×3 (03:25→22:52)
[2019-09-03] MEDS: MUPIROCIN 2% OINT 22 GM TUBE TOP SCH (08:17)
[2019-09-03] MEDS ORDERED: DEXTROSE 10% 25 GM/250 ML BAG IV PRN (13:51)
[2019-09-03] MEDS ORDERED: GLUCAGON 1 MG VIAL IM PRN (13:51)
[2019-09-03] MEDS: PANTOPRAZOLE 40 MG TABLET PO SCH ×2 (14:46→20:38)
[2019-09-03] MEDS: LEVOTHYROXINE 125 MCG TABLET PO SCH (14:46)
[2019-09-03] MEDS: INSULIN REGULAR 100 UNIT/ML SUBCUT SCH ×2 (17:35→20:36)
[2019-09-03] MEDS: CALCIUM ACETATE 667 MG CAPSULE PO SCH (17:35)
[2019-09-03] MEDS: allopurinoL 100 MG TABLET PO SCH (18:45)
[2019-09-03] MEDS: ROSUVASTATIN 20 MG TABLET PO SCH (20:37)
[2019-09-03] MEDS: METOPROLOL SUCCINATE XL 25 MG TABLET PO SCH (20:37)
[2019-09-04 04:54] LABS: Basophils % 0.3 % (0.0-0.8); Eosinophils # 0.2 10*3/uL (0.0-0.87); Eosinophils % 2.3 % (0.00-10.9); Hematocrit 28.1 VOL% (35.7-47.0); Immature Granulocytes % 0.9 %; Immature Granulocytes Absolute 0.06 #; Lymphocytes # 1.3 10*3/uL (1.4-4.0); Lymphocytes % 19.8 % (21.3-54.2); Mean Corpuscular HGB Conc 32.4 GM/DL (32-36); Mean Corpuscular Volume 100.4 FL (87-102); Mean Platelet Volume 9.8 FL (9.6-12.0); NRBC # 0.02 10*3/uL; Neutrophils % 68.7 % (38.7-73.9); Platelet Count 161 T/CUMM (130-400); Red Cell Distribution Width 17.2 % (9.3-17.3); White Blood Count 6.4 T/CUMM (4-12)
[2019-09-04 04:55] LABS: Hemoglobin 9.1 GM/DL (12.0-16.0)
[2019-09-04 05:04] LABS: Calcium 7.4 MG/DL (8.5-10.1); Osmolality,Calculated 279.8 MOS/KG (273-304)
[2019-09-04] MEDS: LEVOTHYROXINE 125 MCG TABLET PO SCH (06:14)
[2019-09-04] MEDS ORDERED: VANCOMYCIN INJ 1,000 MG in SODIUM CHLORIDE 0.9% 250 ML IV ONE (08:20)
[2019-09-04] MEDS: INSULIN REGULAR 100 UNIT/ML SUBCUT SCH ×4 (08:34→20:25)
[2019-09-04] MEDS ORDERED: VANCOMYCIN 500 MG VIAL ONE (08:37)
[2019-09-04] MEDS ORDERED: TISSUE ADHESIVE 1 EACH APPLICATOR TOP ONE (08:37)
[2019-09-04] MEDS ORDERED: HEPARIN 5,000 UNIT/1 ML VIAL ONE (08:37)
[2019-09-04] MEDS ORDERED: THROMBIN TOPICAL (RECOMBINANT) 5,000 UNIT VIAL TOP ONE (08:37)
[2019-09-04] MEDS ORDERED: LIDOCAINE 1% 20 ML VIAL ONE (08:37)
[2019-09-04] MEDS: CALCIUM ACETATE 667 MG CAPSULE PO SCH ×2 (09:09→18:41)
[2019-09-04] MEDS: SODIUM CHLORIDE 0.9% 1,000 ML IV SCH (09:12)
[2019-09-04] MEDS ORDERED: SODIUM CHLORIDE 0.9% 250 ML IV SCH (09:30)
[2019-09-04] MEDS: MUPIROCIN 2% OINT 22 GM TUBE TOP SCH (11:55)
[2019-09-04] MEDS ORDERED: HYDROmorphone 2 MG/1 ML VIAL IV PRN (13:07)
[2019-09-04] MEDS ORDERED: ONDANSETRON 4 MG/2 ML VIAL IV PRN (13:07)
[2019-09-04] MEDS ORDERED: LIDOCAINE 2% 5 ML VIAL ONE (13:10)
[2019-09-04] MEDS ORDERED: ETOMIDATE 40 MG/20 ML VIAL IV ONE (13:11)
[2019-09-04] MEDS ORDERED: SEVOFLURANE 1 UNIT/15 MINUTE INH ONE (13:11)
[2019-09-04] MEDS ORDERED: fentaNYL 100 MCG/2 ML VIAL ONE (13:11)
[2019-09-04] MEDS ORDERED: PHENYLEPHRINE 10 MG/1 ML VIAL IV ONE (13:11)
[2019-09-04] MEDS ORDERED: HEPARIN 10,000 UNIT/10 ML VIAL ONE (13:11)
[2019-09-04] MEDS ORDERED: DEXAMETHASONE 4 MG/1 ML VIAL ONE (13:11)
[2019-09-04] MEDS ORDERED: ONDANSETRON 4 MG/2 ML VIAL ONE (13:11)
[2019-09-04] MEDS ORDERED: SODIUM CHLORIDE 0.9% 200 ML IV ONE (13:12)
[2019-09-04] MEDS ORDERED: GLYCOPYRROLATE 0.4 MG/2 ML VIAL ONE (13:12)
[2019-09-04] MEDS ORDERED: SUCCINYLCHOLINE 200 MG/10 ML VIAL ONE (13:12)
[2019-09-04] MEDS ORDERED: PHENYLEPHRINE 1 MG/10 ML SYRINGE IV ONE (13:12)
[2019-09-04] MEDS ORDERED: ROCURONIUM 100 MG/10 ML VIAL IV ONE (13:12)
[2019-09-04] MEDS ORDERED: LACTATED RINGERS 1,000 ML IV SCH (13:30)
[2019-09-04] MEDS: PHENYLEPHRINE DRIP 40 MG/250 ML PREMIX IV PRN ×3 (13:30→23:16)
[2019-09-04 13:33] LABS: Hematocrit 28.5 VOL% (35.7-47.0); Hemoglobin 8.9 GM/DL (12.0-16.0)
[2019-09-04 13:49] LABS: Osmolality,Calculated 281.8 MOS/KG (273-304)
[2019-09-04] MEDS ORDERED: EPINEPHrine 1 MG/10 ML SYRINGE ONE (13:50)
[2019-09-04] MEDS ORDERED: ePHEDrine 50 MG/ML AMP ONE (13:51)
[2019-09-04] MEDS ORDERED: PHENYLEPHRINE DRIP 40 MG/250 ML PREMIX IV ONE (14:10)
[2019-09-04] MEDS: ROSUVASTATIN 20 MG TABLET PO SCH (14:24)
[2019-09-04] MEDS: PANTOPRAZOLE 40 MG TABLET PO SCH ×2 (14:25→20:24)
[2019-09-04] MEDS ORDERED: CALCIUM CHLORIDE 1,000 MG/10 ML SYRINGE IV ONE (14:49)
[2019-09-04] MEDS ORDERED: ePHEDrine 50 MG/ML AMP IV ONE (14:53)
[2019-09-04] MEDS ORDERED: SODIUM CHLORIDE 0.9% 500 ML IV SCH (16:30)
[2019-09-04 17:58] LABS: Hematocrit 27.9 VOL% (35.7-47.0); Hemoglobin 8.6 GM/DL (12.0-16.0)
[2019-09-04] MEDS: glipiZIDE 5 MG TABLET PO SCH (18:41)
[2019-09-04] MEDS: allopurinoL 100 MG TABLET PO SCH (18:46)
[2019-09-04] MEDS: METOPROLOL SUCCINATE XL 25 MG TABLET PO SCH (23:52)
[2019-09-05] MEDS: PHENYLEPHRINE DRIP 40 MG/250 ML PREMIX IV PRN ×7 (01:33→15:00)
[2019-09-05 05:04] LABS: Basophils % 0.3 % (0.0-0.8); Eosinophils % 0.1 % (0.00-10.9); Hematocrit 23.1 VOL% (35.7-47.0); Hemoglobin 7.2 GM/DL (12.0-16.0); Immature Granulocytes % 1.1 %; Immature Granulocytes Absolute 0.09 #; Lymphocytes # 1.4 10*3/uL (1.4-4.0); Lymphocytes % 17.2 % (21.3-54.2); Mean Corpuscular HGB Conc 31.2 GM/DL (32-36); Mean Corpuscular Volume 103.6 FL (87-102); Mean Platelet Volume 9.9 FL (9.6-12.0); Monocytes % 13.3 % (1.7-12.7); NRBC # 0.12 10*3/uL; Platelet Count 179 T/CUMM (130-400); Red Blood Count 2.23 MC/CUMM (3.8-5.5); Red Cell Distribution Width 18.3 % (9.3-17.3); White Blood Count 7.9 T/CUMM (4-12)
[2019-09-05 05:23] LABS: Calcium 7.7 MG/DL (8.5-10.1)
[2019-09-05] MEDS: LEVOTHYROXINE 125 MCG TABLET PO SCH (06:23)
[2019-09-05] MEDS: SODIUM CHLORIDE 0.9% 1,000 ML IV SCH (06:50)
[2019-09-05] MEDS ORDERED: INSULIN GLARGINE 100 UNIT/ML SUBCUT PRN (07:14)
[2019-09-05] MEDS: ENOXAPARIN 30 MG/0.3 ML SYRINGE SUBCUT SCH (07:56)
[2019-09-05] MEDS: INSULIN REGULAR 100 UNIT/ML SUBCUT SCH ×4 (07:57→22:41)
[2019-09-05] MEDS: CALCIUM ACETATE 667 MG CAPSULE PO SCH ×2 (07:59→17:52)
[2019-09-05] MEDS: glipiZIDE 5 MG TABLET PO SCH ×2 (07:59→17:52)
[2019-09-05] MEDS ORDERED: SODIUM CHLORIDE 0.9% 1,000 ML IV PRN ×2 (08:08→08:12)
[2019-09-05] MEDS ORDERED: CLOPIDOGREL 75 MG TABLET PO SCH (09:00)
[2019-09-05] MEDS ORDERED: ASPIRIN CHEW 81 MG TABLET PO SCH (09:00)
[2019-09-05] MEDS: CLOPIDOGREL 75 MG TABLET PO SCH (09:36)
[2019-09-05] MEDS: PANTOPRAZOLE 40 MG TABLET PO SCH ×2 (09:36→22:35)
[2019-09-05] MEDS: MUPIROCIN 2% OINT 22 GM TUBE TOP SCH (09:36)
[2019-09-05] MEDS: ROSUVASTATIN 20 MG TABLET PO SCH (09:36)
[2019-09-05] MEDS: ASPIRIN EC 81 MG TABLET PO SCH (09:36)
[2019-09-05] MEDS: lisinopriL 10 MG TABLET PO SCH (09:45)
[2019-09-05] MEDS: allopurinoL 100 MG TABLET PO SCH (19:16)
[2019-09-05] MEDS: METOPROLOL SUCCINATE XL 25 MG TABLET PO SCH (22:35)
[2019-09-06] MEDS: GABAPENTIN 300 MG CAPSULE PO PRN ×2 (00:29→06:32)
[2019-09-06] MEDS ORDERED: ACETAMINOPHEN 325 MG TABLET PO PRN (02:59)
[2019-09-06 05:02] LABS: Basophils % 0.4 % (0.0-0.8); Eosinophils # 0.1 10*3/uL (0.0-0.87); Eosinophils % 0.9 % (0.00-10.9); Hematocrit 25.3 VOL% (35.7-47.0); Hemoglobin 8.4 GM/DL (12.0-16.0); Immature Granulocytes % 0.8 %; Immature Granulocytes Absolute 0.06 #; Lymphocytes # 0.9 10*3/uL (1.4-4.0); Lymphocytes % 11.8 % (21.3-54.2); Mean Corpuscular HGB Conc 33.2 GM/DL (32-36); Mean Corpuscular Volume 92.3 FL (87-102); Mean Platelet Volume 9.4 FL (9.6-12.0); Monocytes % 8.1 % (1.7-12.7); NRBC # 0.11 10*3/uL; Platelet Count 96 T/CUMM (130-400); Red Blood Count 2.74 MC/CUMM (3.8-5.5); Red Cell Distribution Width 19.9 % (9.3-17.3); White Blood Count 7.4 T/CUMM (4-12)
[2019-09-06 05:26] LABS: Band Neutrophils 11 % (0-10); Eosinophils 1 % (0-10); Lymphocytes 10 % (20-55); Nucleated Red Blood Cells 2 (0-5); Platelet Estimate Decreased; Segmented Neutrophils 71 % (50-85)
[2019-09-06 05:27] LABS: Anisocytosis 2+
[2019-09-06 05:30] LABS: Hypochromasia Slight; Macrocytosis 2+; Polychromasia Few; Total Cells Counted 100
[2019-09-06 05:41] LABS: Calcium 7.6 MG/DL (8.5-10.1)
[2019-09-06] MEDS: LEVOTHYROXINE 125 MCG TABLET PO SCH (06:32)
[2019-09-06] MEDS: INSULIN REGULAR 100 UNIT/ML SUBCUT SCH ×4 (08:33→21:13)
[2019-09-06] MEDS: CLOPIDOGREL 75 MG TABLET PO SCH (08:55)
[2019-09-06] MEDS: CALCIUM ACETATE 667 MG CAPSULE PO SCH ×2 (08:55→18:58)
[2019-09-06] MEDS: PANTOPRAZOLE 40 MG TABLET PO SCH ×2 (08:55→21:14)
[2019-09-06] MEDS: glipiZIDE 5 MG TABLET PO SCH ×2 (08:55→18:58)
[2019-09-06] MEDS: ROSUVASTATIN 20 MG TABLET PO SCH (08:55)
[2019-09-06] MEDS: ENOXAPARIN 30 MG/0.3 ML SYRINGE SUBCUT SCH (08:55)
[2019-09-06] MEDS: ASPIRIN EC 81 MG TABLET PO SCH (08:55)
[2019-09-06] MEDS: lisinopriL 10 MG TABLET PO SCH (08:56)
[2019-09-06] MEDS ORDERED: ONDANSETRON 4 MG/2 ML VIAL IV PRN (11:43)
[2019-09-06] MEDS ORDERED: ONDANSETRON 4 MG TABLET PO PRN (11:43)
[2019-09-06] MEDS: MUPIROCIN 2% OINT 22 GM TUBE TOP SCH (11:52)
[2019-09-06] MEDS: METOPROLOL SUCCINATE XL 25 MG TABLET PO SCH (21:13)
[2019-09-06] MEDS: allopurinoL 100 MG TABLET PO SCH (21:14)
[2019-09-07] MEDS: LEVOTHYROXINE 125 MCG TABLET PO SCH (06:00)
[2019-09-07 06:20] LABS: Basophils % 0.3 % (0.0-0.8); Eosinophils # 0.1 10*3/uL (0.0-0.87); Eosinophils % 1.9 % (0.00-10.9); Hematocrit 25.8 VOL% (35.7-47.0); Hemoglobin 8.2 GM/DL (12.0-16.0); Immature Granulocytes Absolute 0.06 #; Lymphocytes # 0.8 10*3/uL (1.4-4.0); Lymphocytes % 13.2 % (21.3-54.2); Mean Corpuscular HGB Conc 31.8 GM/DL (32-36); Mean Corpuscular Volume 95.2 FL (87-102); Monocytes % 7.4 % (1.7-12.7); NRBC # 0.06 10*3/uL; Neutrophils % 76.2 % (38.7-73.9); Platelet Count 104 T/CUMM (130-400); Red Blood Count 2.71 MC/CUMM (3.8-5.5); Red Cell Distribution Width 20.3 % (9.3-17.3); White Blood Count 6.2 T/CUMM (4-12)
[2019-09-07 07:11] LABS: Osmolality,Calculated 275.5 MOS/KG (273-304)
[2019-09-07] MEDS: INSULIN REGULAR 100 UNIT/ML SUBCUT SCH ×4 (08:21→20:34)
[2019-09-07] MEDS: ROSUVASTATIN 20 MG TABLET PO SCH (08:23)
[2019-09-07] MEDS: glipiZIDE 5 MG TABLET PO SCH ×2 (08:23→17:22)
[2019-09-07] MEDS: ASPIRIN EC 81 MG TABLET PO SCH (08:23)
[2019-09-07] MEDS: CLOPIDOGREL 75 MG TABLET PO SCH (08:23)
[2019-09-07] MEDS: CALCIUM ACETATE 667 MG CAPSULE PO SCH ×2 (08:23→17:22)
[2019-09-07] MEDS: PANTOPRAZOLE 40 MG TABLET PO SCH ×2 (08:23→20:34)
[2019-09-07] MEDS: ENOXAPARIN 30 MG/0.3 ML SYRINGE SUBCUT SCH (08:23)
[2019-09-07] MEDS: lisinopriL 10 MG TABLET PO SCH (08:24)
[2019-09-07] MEDS: GABAPENTIN 300 MG CAPSULE PO PRN ×2 (09:17→20:40)
[2019-09-07] MEDS: MUPIROCIN 2% OINT 22 GM TUBE TOP SCH (09:17)
[2019-09-07] MEDS: allopurinoL 100 MG TABLET PO SCH (20:34)
[2019-09-07] MEDS: METOPROLOL SUCCINATE XL 25 MG TABLET PO SCH (20:34)
[2019-09-08 05:48] LABS: Basophils % 0.2 % (0.0-0.8); Eosinophils # 0.1 10*3/uL (0.0-0.87); Eosinophils % 1.7 % (0.00-10.9); Hematocrit 26.3 VOL% (35.7-47.0); Hemoglobin 8.3 GM/DL (12.0-16.0); Immature Granulocytes % 0.7 %; Immature Granulocytes Absolute 0.04 #; Lymphocytes # 0.7 10*3/uL (1.4-4.0); Lymphocytes % 11.8 % (21.3-54.2); Mean Corpuscular HGB Conc 31.6 GM/DL (32-36); Mean Corpuscular Volume 95.3 FL (87-102); Mean Platelet Volume 9.2 FL (9.6-12.0); Monocytes % 7.1 % (1.7-12.7); NRBC # 0.02 10*3/uL; Neutrophils % 78.5 % (38.7-73.9); Platelet Count 105 T/CUMM (130-400); Red Blood Count 2.76 MC/CUMM (3.8-5.5); Red Cell Distribution Width 20.3 % (9.3-17.3); White Blood Count 5.8 T/CUMM (4-12)
[2019-09-08 06:26] LABS: Calcium 8.5 MG/DL (8.5-10.1); Osmolality,Calculated 277.4 MOS/KG (273-304)
[2019-09-08] MEDS: ENOXAPARIN 30 MG/0.3 ML SYRINGE SUBCUT SCH (06:26)
[2019-09-08] MEDS: LEVOTHYROXINE 125 MCG TABLET PO SCH (06:26)
[2019-09-08] MEDS: CALCIUM ACETATE 667 MG CAPSULE PO SCH ×2 (09:07→17:19)
[2019-09-08] MEDS: CLOPIDOGREL 75 MG TABLET PO SCH (09:08)
[2019-09-08] MEDS: glipiZIDE 5 MG TABLET PO SCH ×2 (09:08→17:19)
[2019-09-08] MEDS: ASPIRIN EC 81 MG TABLET PO SCH (09:08)
[2019-09-08] MEDS: ROSUVASTATIN 20 MG TABLET PO SCH (09:08)
[2019-09-08] MEDS: PANTOPRAZOLE 40 MG TABLET PO SCH ×2 (09:08→23:16)
[2019-09-08] MEDS: lisinopriL 10 MG TABLET PO SCH (09:09)
[2019-09-08] MEDS: INSULIN REGULAR 100 UNIT/ML SUBCUT SCH ×4 (09:09→23:15)
[2019-09-08] MEDS: MUPIROCIN 2% OINT 22 GM TUBE TOP SCH (09:10)
[2019-09-08] MEDS: GABAPENTIN 300 MG CAPSULE PO PRN (23:16)
[2019-09-08] MEDS: allopurinoL 100 MG TABLET PO SCH (23:16)
[2019-09-08] MEDS: METOPROLOL SUCCINATE XL 25 MG TABLET PO SCH (23:16)
[2019-09-09 04:55] LABS: Basophils % 0.2 % (0.0-0.8); Eosinophils # 0.1 10*3/uL (0.0-0.87); Eosinophils % 2.4 % (0.00-10.9); Hematocrit 26.5 VOL% (35.7-47.0); Hemoglobin 8.5 GM/DL (12.0-16.0); Immature Granulocytes % 0.8 %; Immature Granulocytes Absolute 0.04 #; Lymphocytes # 1.1 10*3/uL (1.4-4.0); Lymphocytes % 19.9 % (21.3-54.2); Mean Corpuscular HGB Conc 32.1 GM/DL (32-36); Mean Corpuscular Volume 95.3 FL (87-102); Mean Platelet Volume 9.4 FL (9.6-12.0); Neutrophils % 67.7 % (38.7-73.9); Platelet Count 113 T/CUMM (130-400); Red Blood Count 2.78 MC/CUMM (3.8-5.5); Red Cell Distribution Width 20.2 % (9.3-17.3); White Blood Count 5.3 T/CUMM (4-12)
[2019-09-09 05:22] LABS: Calcium 7.9 MG/DL (8.5-10.1); Osmolality,Calculated 286.5 MOS/KG (273-304)
[2019-09-09] MEDS: LEVOTHYROXINE 125 MCG TABLET PO SCH (06:08)
[2019-09-09] MEDS: ENOXAPARIN 30 MG/0.3 ML SYRINGE SUBCUT SCH (06:09)
[2019-09-09] MEDS: INSULIN REGULAR 100 UNIT/ML SUBCUT SCH ×3 (09:55→18:18)
[2019-09-09] MEDS: MUPIROCIN 2% OINT 22 GM TUBE TOP SCH (11:31)
[2019-09-09] MEDS: ASPIRIN EC 81 MG TABLET PO SCH (12:56)
[2019-09-09] MEDS: CALCIUM ACETATE 667 MG CAPSULE PO SCH ×2 (12:56→18:18)
[2019-09-09] MEDS: glipiZIDE 5 MG TABLET PO SCH ×2 (12:57→18:18)
[2019-09-09] MEDS: ROSUVASTATIN 20 MG TABLET PO SCH (12:57)
[2019-09-09] MEDS: lisinopriL 10 MG TABLET PO SCH (12:57)
[2019-09-09] MEDS: PANTOPRAZOLE 40 MG TABLET PO SCH (12:57)
[2019-09-09] MEDS: CLOPIDOGREL 75 MG TABLET PO SCH (12:57)
[2019-09-09 17:08] VITALS: BP 62/33
== END 2019-09-09 19:09 | disposition home health service (06) | DRG 252 ==
LOC: N.CL 05:47 → N.5E 11:25 → N.CC 14:31 → N.TELES 09-03 15:56 → N.CC 09-04 16:55 → N.TELEN 09-06 17:13
PROVIDERS: ADMIT Internal Medicine Cardiovascular Disease; ATTEND Internal Medicine Cardiovascular Disease

== ENCOUNTER 2019-10-12 19:22 | Inpatient (IN) ==
[2019-10-12] MEDS ORDERED: SODIUM CHLORIDE 0.9% 1,000 ML IV STA (20:07)
[2019-10-12 20:32] LABS: Basophils % 0.3 % (0.0-0.8); Eosinophils % 0.1 % (0.00-10.9); Hematocrit 41.2 VOL% (35.7-47.0); Immature Granulocytes Absolute 0.11 #; Lymphocytes # 0.4 10*3/uL (1.4-4.0); Lymphocytes % 3.8 % (21.3-54.2); Mean Corpuscular HGB Conc 31.6 GM/DL (32-36); Mean Platelet Volume 10.1 FL (9.6-12.0); Monocytes % 5.5 % (1.7-12.7); Neutrophils % 89.3 % (38.7-73.9); Platelet Count 177 T/CUMM (130-400); Red Cell Distribution Width 20.9 % (9.3-17.3); White Blood Count 10.6 T/CUMM (4-12)
[2019-10-12 20:37] LABS: PT Patient Result 10.7 SECS (9.6-12.2)
[2019-10-12 20:45] LABS: Alanine Aminotransferase 30 U/L (13-56); Albumin 1.8 G/DL (3.4-5.0); Alkaline Phosphatase 44 U/L (45-117); Aspartate Amino Transferase 28 U/L (0-37); Bilirubin,Total < 0.39 MG/DL (0.2-1.0); Blood Urea Nitrogen 18 MG/DL (7-18); Estimated Glom Filtration Rate 15 ML/MIN; Glucose 129 MG/DL (74-106); Osmolality,Calculated 289.8 MOS/KG (273-304); Total Protein 4.3 G/DL (6.4-8.3)
[2019-10-12 20:50] LABS: Calcium 5.3 MG/DL (8.5-10.1)
[2019-10-12] MEDS ORDERED: CALCIUM CHLORIDE 1,000 MG/10 ML SYRINGE IV STA (20:53)
[2019-10-12] MEDS ORDERED: VANCOMYCIN INJ 1,000 MG in SODIUM CHLORIDE 0.9% 250 ML IV STA (20:57)
[2019-10-12] MEDS ORDERED: PIPERACILLIN/TAZOBACTAM 3,375 MG in SODIUM CHLORIDE 0.9% 100 ML IV STA (20:57)
[2019-10-12 21:00] LABS: Lymphocytes 3 % (20-55); Platelet Estimate Normal; Segmented Neutrophils 95 % (50-85); Total Cells Counted 100
[2019-10-12] MEDS ORDERED: NOREPINEPHRINE 4 MG/4 ML VIAL IV ONE (21:05)
[2019-10-12] MEDS ORDERED: NICOTINE 21 MG/24 HR PATCH TRANSDERM PRN (21:36)
[2019-10-12] MEDS ORDERED: ONDANSETRON 4 MG/2 ML VIAL IV PRN (21:36)
[2019-10-12] MEDS ORDERED: DOCUSATE SODIUM 100 MG CAPSULE PO PRN (21:36)
[2019-10-12] MEDS ORDERED: ALBUTEROL 2.5 MG/3 ML NEB RESP TX PRN (21:36)
[2019-10-12] MEDS ORDERED: PROMETHAZINE 25 MG/1 ML VIAL IM PRN (21:36)
[2019-10-12] MEDS ORDERED: hydrALAZINE 20 MG/1 ML VIAL IV PRN (21:36)
[2019-10-12] MEDS ORDERED: POTASSIUM CHLORIDE RIDER 10 MEQ in PREMIX 1 EACH IV PRN (22:20)
[2019-10-12] MEDS: NOREPINEPHRINE 8 MG in SODIUM CHLORIDE 0.9% 242 ML IV PRN (22:57)
[2019-10-12 23:02] LABS: Apearance,Urine CLOUDY (Clear); Bacteria,Urine Many /HPF (Few); Bilirubin,Urine Negative (Negative); Blood, Urine Negative (Negative); Glucose,Urine (UA) Negative (Negative); Ketones,Urine Negative (Negative); Mucus,Urine Occasional /LPF (Occasional); Nitrite,Urine Negative (Negative); Protein,Urine 100 MG/DL; Squamous Epithelial Cell,Urine Many /HPF (0-10); Urine Color Yellow (Yellow); Urine Specific Gravity 1.012 (1.001-1.035); Urine Urobilinogen < 2.0 EU/DL (0.2-1.0); WBC,Urine 1 /HPF (0-6)
[2019-10-13] MEDS ORDERED: POTASSIUM CHLORIDE RIDER 200 ML IV ONE (00:21)
[2019-10-13] MEDS: POTASSIUM CHLORIDE RIDER 20 MEQ in PREMIX 1 EACH IV PRN ×2 (00:27→01:21)
[2019-10-13] MEDS ORDERED: CALCIUM GLUCONATE 2,000 MG in SODIUM CHLORIDE 0.9% 100 ML IV ONE (01:00)
[2019-10-13] MEDS ORDERED: VANCOMYCIN INJ 2,000 MG in SODIUM CHLORIDE 0.9% 500 ML IV ONE (01:00)
[2019-10-13] MEDS ORDERED: PHENYLEPHRINE DRIP 40 MG/250 ML PREMIX IV ONE (01:17)
[2019-10-13] MEDS: PHENYLEPHRINE DRIP 40 MG/250 ML PREMIX IV PRN ×4 (01:27→11:20)
[2019-10-13] MEDS ORDERED: VANCOMYCIN INJ 1,000 MG in SODIUM CHLORIDE 0.9% 250 ML IV ONE (01:30)
[2019-10-13] MEDS ORDERED: NOREPINEPHRINE 4 MG/4 ML VIAL IV ONE (01:37)
[2019-10-13 03:51] LABS: Basophils % 0.2 % (0.0-0.8); Hematocrit 37.8 VOL% (35.7-47.0); Hemoglobin 11.6 GM/DL (12.0-16.0); Immature Granulocytes % 0.6 %; Immature Granulocytes Absolute 0.08 #; Lymphocytes # 1.2 10*3/uL (1.4-4.0); Lymphocytes % 9.3 % (21.3-54.2); Mean Corpuscular HGB Conc 30.7 GM/DL (32-36); Mean Corpuscular Volume 104.4 FL (87-102); Mean Platelet Volume 9.5 FL (9.6-12.0); Monocytes % 6.6 % (1.7-12.7); Neutrophils % 83.3 % (38.7-73.9); Platelet Count 203 T/CUMM (130-400); Red Blood Count 3.62 MC/CUMM (3.8-5.5); White Blood Count 13.3 T/CUMM (4-12)
[2019-10-13] MEDS: NOREPINEPHRINE 8 MG in SODIUM CHLORIDE 0.9% 242 ML IV PRN ×3 (03:57→12:06)
[2019-10-13 04:10] LABS: Albumin 2.8 G/DL (3.4-5.0); Bilirubin,Total 0.7 MG/DL (0.2-1.0); Calcium 8.7 MG/DL (8.5-10.1); Osmolality,Calculated 286.8 MOS/KG (273-304); Risk Ratio 2.14; Total Protein 6.6 G/DL (6.4-8.3)
[2019-10-13] MEDS ORDERED: MAGNESIUM SULF RIDER 4 GM in PREMIX 1 EACH IV PRN (05:01)
[2019-10-13] MEDS ORDERED: MAGNESIUM SULF RIDER 2 GM in PREMIX 1 EACH IV PRN (05:01)
[2019-10-13] MEDS ORDERED: SODIUM CHLORIDE 0.9% 1,000 ML IV ONE (05:06)
[2019-10-13 05:30] LABS: Band Neutrophils 3 % (0-10); Hypochromasia Slight; Lymphocytes 12 % (20-55); Ovalocytes Slight; Platelet Estimate Adequate; Segmented Neutrophils 78 % (50-85); Total Cells Counted 100
[2019-10-13] MEDS: MEROPENEM 500 MG in SODIUM CHLORIDE 0.9% 100 ML IV SCH (06:10)
[2019-10-13] MEDS ORDERED: PANTOPRAZOLE 40 MG VIAL IV SCH (09:00)
[2019-10-13] MEDS ORDERED: INSULIN GLARGINE 100 UNIT/ML SUBCUT PRN (09:54)
[2019-10-13] MEDS ORDERED: GABAPENTIN 300 MG CAPSULE PO PRN (09:54)
[2019-10-13] MEDS ORDERED: HYDROCORTISONE 100 MG VIAL IV ONE (10:44)
[2019-10-13] MEDS: CLOPIDOGREL 75 MG TABLET PO SCH (11:39)
[2019-10-13] MEDS: ASPIRIN EC 81 MG TABLET PO SCH (11:40)
[2019-10-13] MEDS ORDERED: SODIUM CHLORIDE 0.9% 500 ML IV ONE ×2 (12:07→15:00)
[2019-10-13] MEDS: CALCIUM ACETATE 667 MG CAPSULE PO SCH ×2 (15:01→18:39)
[2019-10-13] MEDS ORDERED: HEPARIN/NACL 0.9% 2 UNITS/ML 500 ML IV SCH (15:30)
[2019-10-13] MEDS: NOREPINEPHRINE 16 MG in SODIUM CHLORIDE 0.9% 234 ML IV PRN (16:08)
[2019-10-13] MEDS ORDERED: INSULIN REGULAR 100 UNIT/ML SUBCUT SCH (18:16)
[2019-10-13] MEDS: glipiZIDE 5 MG TABLET PO SCH (18:39)
[2019-10-13] MEDS: VANCOMYCIN 50 MG/ML 60 ML/BOTTLE PO SCH ×2 (18:42→23:27)
[2019-10-13] MEDS: PANTOPRAZOLE 40 MG TABLET PO SCH (20:14)
[2019-10-13] MEDS: INSULIN REGULAR 100 UNIT/ML SUBCUT SCH (23:28)
[2019-10-14] MEDS: NOREPINEPHRINE 16 MG in SODIUM CHLORIDE 0.9% 234 ML IV PRN ×3 (01:07→21:45)
[2019-10-14] MEDS: INSULIN REGULAR 100 UNIT/ML SUBCUT SCH ×5 (04:25→21:50)
[2019-10-14 04:28] LABS: Basophils % 0.2 % (0.0-0.8); Eosinophils % 0.1 % (0.00-10.9); Hematocrit 35.4 VOL% (35.7-47.0); Hemoglobin 11.1 GM/DL (12.0-16.0); Immature Granulocytes % 0.4 %; Immature Granulocytes Absolute 0.05 #; Lymphocytes # 0.8 10*3/uL (1.4-4.0); Mean Corpuscular HGB Conc 31.4 GM/DL (32-36); Mean Corpuscular Volume 102.9 FL (87-102); Mean Platelet Volume 9.4 FL (9.6-12.0); Neutrophils % 85.3 % (38.7-73.9); Platelet Count 145 T/CUMM (130-400); Red Blood Count 3.44 MC/CUMM (3.8-5.5); Red Cell Distribution Width 20.6 % (9.3-17.3); White Blood Count 11.3 T/CUMM (4-12)
[2019-10-14 04:48] LABS: Band Neutrophils 6 % (0-10); Lymphocytes 6 % (20-55); Segmented Neutrophils 85 % (50-85); Total Cells Counted 100
[2019-10-14 04:49] LABS: Hypochromasia 1+; Ovalocytes Slight; Platelet Estimate Adequate
[2019-10-14 05:01] LABS: Calcium 7.5 MG/DL (8.5-10.1)
[2019-10-14] MEDS: MEROPENEM 500 MG in SODIUM CHLORIDE 0.9% 100 ML IV SCH (06:04)
[2019-10-14] MEDS: VANCOMYCIN 50 MG/ML 60 ML/BOTTLE PO SCH ×3 (06:05→17:30)
[2019-10-14] MEDS: SIMVASTATIN 20 MG TABLET PO SCH (08:52)
[2019-10-14] MEDS: PANTOPRAZOLE 40 MG TABLET PO SCH ×2 (08:52→21:48)
[2019-10-14] MEDS: CALCIUM ACETATE 667 MG CAPSULE PO SCH ×3 (08:52→17:30)
[2019-10-14] MEDS: glipiZIDE 5 MG TABLET PO SCH (08:53)
[2019-10-14] MEDS: MUPIROCIN 2% OINT 22 GM TUBE TOP SCH (08:55)
[2019-10-14] MEDS: ASPIRIN EC 81 MG TABLET PO SCH (08:55)
[2019-10-14] MEDS: CLOPIDOGREL 75 MG TABLET PO SCH (08:56)
[2019-10-14] MEDS ORDERED: INSULIN GLARGINE 100 UNIT/ML SUBCUT PRN (11:47)
[2019-10-14] MEDS: HEPARIN 5,000 UNIT/1 ML VIAL SUBCUT SCH (13:55)
[2019-10-14] MEDS: MIDODRINE 5 MG TABLET PO SCH ×2 (16:11→21:48)
[2019-10-14] MEDS: ACETAMINOPHEN 325 MG TABLET PO PRN (20:38)
[2019-10-15] MEDS: VANCOMYCIN 50 MG/ML 60 ML/BOTTLE PO SCH ×4 (00:20→17:31)
[2019-10-15] MEDS: HEPARIN 5,000 UNIT/1 ML VIAL SUBCUT SCH ×2 (00:20→13:00)
[2019-10-15] MEDS: INSULIN REGULAR 100 UNIT/ML SUBCUT SCH ×6 (00:20→21:49)
[2019-10-15 04:55] LABS: Basophils % 0.2 % (0.0-0.8); Eosinophils # 0.1 10*3/uL (0.0-0.87); Eosinophils % 1.2 % (0.00-10.9); Hematocrit 29.8 VOL% (35.7-47.0); Hemoglobin 9.7 GM/DL (12.0-16.0); Immature Granulocytes % 0.8 %; Immature Granulocytes Absolute 0.07 #; Lymphocytes % 11.4 % (21.3-54.2); Mean Corpuscular HGB Conc 32.6 GM/DL (32-36); Mean Corpuscular Volume 98.7 FL (87-102); Mean Platelet Volume 10.6 FL (9.6-12.0); Monocytes % 8.8 % (1.7-12.7); NRBC # 0.02 10*3/uL; Neutrophils % 77.6 % (38.7-73.9); Red Blood Count 3.02 MC/CUMM (3.8-5.5); White Blood Count 8.6 T/CUMM (4-12)
[2019-10-15 05:31] LABS: Platelet Count 97 T/CUMM (130-400)
[2019-10-15 05:34] LABS: Calcium 7.4 MG/DL (8.5-10.1); Osmolality,Calculated 277.7 MOS/KG (273-304)
[2019-10-15 05:43] LABS: Band Neutrophils 1 % (0-10); Eosinophils 1 % (0-10); Hypochromasia 1+; Lymphocytes 9 % (20-55); Platelet Estimate Decreased; Segmented Neutrophils 83 % (50-85); Total Cells Counted 100
[2019-10-15] MEDS: ACETAMINOPHEN 325 MG TABLET PO PRN (05:54)
[2019-10-15] MEDS: LEVOTHYROXINE 125 MCG TABLET PO SCH (05:54)
[2019-10-15] MEDS: CALCIUM ACETATE 667 MG CAPSULE PO SCH ×3 (08:20→17:31)
[2019-10-15] MEDS: ASPIRIN EC 81 MG TABLET PO SCH (08:20)
[2019-10-15] MEDS: MIDODRINE 5 MG TABLET PO SCH ×3 (08:20→22:07)
[2019-10-15] MEDS: PANTOPRAZOLE 40 MG TABLET PO SCH ×2 (08:20→22:07)
[2019-10-15] MEDS: CLOPIDOGREL 75 MG TABLET PO SCH (08:20)
[2019-10-15] MEDS: SIMVASTATIN 20 MG TABLET PO SCH (08:20)
[2019-10-15] MEDS: MUPIROCIN 2% OINT 22 GM TUBE TOP SCH (08:23)
[2019-10-15] MEDS ORDERED: DEXTROSE 10% 250 ML BAG IV PRN (09:14)
[2019-10-15] MEDS ORDERED: GLUCAGON 1 MG VIAL IM PRN (09:14)
[2019-10-16] MEDS: HEPARIN 5,000 UNIT/1 ML VIAL SUBCUT SCH ×2 (00:36→16:00)
[2019-10-16] MEDS: VANCOMYCIN 50 MG/ML 60 ML/BOTTLE PO SCH ×4 (00:36→18:26)
[2019-10-16 04:30] LABS: Basophils % 0.3 % (0.0-0.8); Eosinophils # 0.1 10*3/uL (0.0-0.87); Hematocrit 28.2 VOL% (35.7-47.0); Hemoglobin 8.7 GM/DL (12.0-16.0); Immature Granulocytes % 0.8 %; Immature Granulocytes Absolute 0.05 #; Mean Corpuscular HGB Conc 30.9 GM/DL (32-36); Mean Corpuscular Volume 102.5 FL (87-102); Mean Platelet Volume 10.5 FL (9.6-12.0); Monocytes % 6.7 % (1.7-12.7); Neutrophils % 74.2 % (38.7-73.9); Platelet Count 93 T/CUMM (130-400); Red Blood Count 2.75 MC/CUMM (3.8-5.5); Red Cell Distribution Width 20.2 % (9.3-17.3); White Blood Count 6.4 T/CUMM (4-12)
[2019-10-16 04:43] LABS: Calcium 7.2 MG/DL (8.5-10.1); Osmolality,Calculated 282.8 MOS/KG (273-304)
[2019-10-16 04:52] LABS: Eosinophils 2 % (0-10); Lymphocytes 15 % (20-55); Segmented Neutrophils 80 % (50-85); Total Cells Counted 100
[2019-10-16 04:53] LABS: Hypochromasia 1+; Ovalocytes Slight; Platelet Estimate Decreased
[2019-10-16] MEDS: LEVOTHYROXINE 125 MCG TABLET PO SCH (06:38)
[2019-10-16] MEDS: INSULIN REGULAR 100 UNIT/ML SUBCUT SCH ×4 (07:46→21:17)
[2019-10-16] MEDS: MUPIROCIN 2% OINT 22 GM TUBE TOP SCH (09:13)
[2019-10-16] MEDS: MIDODRINE 5 MG TABLET PO SCH ×3 (09:13→21:17)
[2019-10-16] MEDS: CALCIUM ACETATE 667 MG CAPSULE PO SCH ×3 (09:13→18:26)
[2019-10-16] MEDS: SIMVASTATIN 20 MG TABLET PO SCH (09:13)
[2019-10-16] MEDS: CLOPIDOGREL 75 MG TABLET PO SCH (09:13)
[2019-10-16] MEDS: ASPIRIN EC 81 MG TABLET PO SCH (09:13)
[2019-10-16] MEDS: PANTOPRAZOLE 40 MG TABLET PO SCH ×2 (09:13→21:17)
[2019-10-16] MEDS: ACETAMINOPHEN 325 MG TABLET PO PRN (12:20)
[2019-10-17] MEDS: VANCOMYCIN 50 MG/ML 60 ML/BOTTLE PO SCH ×4 (00:34→17:46)
[2019-10-17] MEDS: HEPARIN 5,000 UNIT/1 ML VIAL SUBCUT SCH ×2 (00:34→13:11)
[2019-10-17 04:13] LABS: Basophils % 0.3 % (0.0-0.8); Eosinophils # 0.1 10*3/uL (0.0-0.87); Eosinophils % 3.3 % (0.00-10.9); Hematocrit 26.2 VOL% (35.7-47.0); Hemoglobin 8.4 GM/DL (12.0-16.0); Immature Granulocytes % 0.5 %; Immature Granulocytes Absolute 0.02 #; Lymphocytes % 24.8 % (21.3-54.2); Mean Corpuscular HGB Conc 32.1 GM/DL (32-36); Mean Corpuscular Volume 100.8 FL (87-102); Mean Platelet Volume 10.8 FL (9.6-12.0); Monocytes % 8.9 % (1.7-12.7); Neutrophils % 62.2 % (38.7-73.9)
[2019-10-17 04:17] LABS: Platelet Count 88 T/CUMM (130-400)
[2019-10-17 04:27] LABS: Calcium 7.6 MG/DL (8.5-10.1); Osmolality,Calculated 281.5 MOS/KG (273-304)
[2019-10-17 04:31] LABS: Anisocytosis 1+; Macrocytosis 1+
[2019-10-17 04:32] LABS: Hypochromasia 1+; Platelet Estimate Decreased
[2019-10-17] MEDS: LEVOTHYROXINE 125 MCG TABLET PO SCH (05:53)
[2019-10-17] MEDS: INSULIN REGULAR 100 UNIT/ML SUBCUT SCH ×4 (07:57→22:05)
[2019-10-17] MEDS: PANTOPRAZOLE 40 MG TABLET PO SCH ×2 (09:00→22:03)
[2019-10-17] MEDS: MIDODRINE 5 MG TABLET PO SCH ×3 (09:00→22:03)
[2019-10-17] MEDS: CALCIUM ACETATE 667 MG CAPSULE PO SCH ×3 (09:00→17:46)
[2019-10-17] MEDS: SIMVASTATIN 20 MG TABLET PO SCH (09:01)
[2019-10-17] MEDS: CLOPIDOGREL 75 MG TABLET PO SCH (09:01)
[2019-10-17] MEDS: ASPIRIN EC 81 MG TABLET PO SCH (09:01)
[2019-10-17] MEDS: MUPIROCIN 2% OINT 22 GM TUBE TOP SCH (09:02)
[2019-10-18] MEDS: VANCOMYCIN 50 MG/ML 60 ML/BOTTLE PO SCH ×3 (01:07→13:55)
[2019-10-18] MEDS: HEPARIN 5,000 UNIT/1 ML VIAL SUBCUT SCH ×2 (01:07→13:55)
[2019-10-18 05:46] LABS: Basophils % 0.5 % (0.0-0.8); Eosinophils # 0.1 10*3/uL (0.0-0.87); Eosinophils % 2.2 % (0.00-10.9); Hematocrit 28.5 VOL% (35.7-47.0); Hemoglobin 8.8 GM/DL (12.0-16.0); Immature Granulocytes % 1.4 %; Immature Granulocytes Absolute 0.05 #; Lymphocytes # 1.1 10*3/uL (1.4-4.0); Lymphocytes % 29.8 % (21.3-54.2); Mean Corpuscular HGB Conc 30.9 GM/DL (32-36); Mean Corpuscular Volume 103.3 FL (87-102); Mean Platelet Volume 10.8 FL (9.6-12.0); Monocytes % 11.2 % (1.7-12.7); Neutrophils % 54.9 % (38.7-73.9); Platelet Count 124 T/CUMM (130-400); Red Blood Count 2.76 MC/CUMM (3.8-5.5); Red Cell Distribution Width 19.9 % (9.3-17.3); White Blood Count 3.7 T/CUMM (4-12)
[2019-10-18 06:28] LABS: Calcium 8.1 MG/DL (8.5-10.1); Osmolality,Calculated 282.7 MOS/KG (273-304)
[2019-10-18] MEDS: LEVOTHYROXINE 125 MCG TABLET PO SCH (07:05)
[2019-10-18 08:50] VITALS: BP 127/36
[2019-10-18] MEDS: INSULIN REGULAR 100 UNIT/ML SUBCUT SCH ×2 (11:11→14:50)
[2019-10-18] MEDS: MIDODRINE 5 MG TABLET PO SCH ×2 (11:12→13:54)
[2019-10-18] MEDS: CALCIUM ACETATE 667 MG CAPSULE PO SCH ×2 (11:12→13:54)
[2019-10-18] MEDS: CLOPIDOGREL 75 MG TABLET PO SCH (13:54)
[2019-10-18] MEDS: PANTOPRAZOLE 40 MG TABLET PO SCH (13:54)
[2019-10-18] MEDS: SIMVASTATIN 20 MG TABLET PO SCH (13:54)
[2019-10-18] MEDS: ASPIRIN EC 81 MG TABLET PO SCH (13:55)
== END 2019-10-18 14:50 | disposition home health service (06) | DRG 871 ==
LOC: EDBD → EDUNIT# → N.ED 19:22 → SUATTDRO 21:36 → N.EDINP 21:36 → N.ICU 22:18 → N.2E 10-17 16:35
PROVIDERS: ADMIT Family Medicine; ATTEND Internal Medicine

== ENCOUNTER 2020-05-31 09:15 | Inpatient (IN) ==
[2020-05-31] MEDS ORDERED: SODIUM CHLORIDE 0.9% 500 ML IV STA (10:26)
[2020-05-31 10:39] LABS: Basophils % 0.2 % (0.0-0.8); Eosinophils # 0.1 10*3/uL (0.0-0.87); Eosinophils % 0.6 % (0.00-10.9); Hematocrit 38.7 VOL% (35.7-47.0); Immature Granulocytes Absolute 0.08 #; Lymphocytes # 1.4 10*3/uL (1.4-4.0); Lymphocytes % 17.7 % (21.3-54.2); Mean Corpuscular HGB Conc 33.6 GM/DL (32-36); Mean Corpuscular Volume 94.9 FL (87-102); Mean Platelet Volume 8.8 FL (9.6-12.0); Monocytes % 4.3 % (1.7-12.7); NRBC # 0.02 10*3/uL; Neutrophils % 76.2 % (38.7-73.9); Platelet Count 416 T/CUMM (130-400); Red Blood Count 4.08 MC/CUMM (3.8-5.5); Red Cell Distribution Width 15.1 % (9.3-17.3); White Blood Count 8.1 T/CUMM (4-12)
[2020-05-31 10:57] LABS: Alanine Aminotransferase 18 U/L (13-56); Alkaline Phosphatase 87 U/L (45-117); Amylase 89 U/L (25-115); Aspartate Amino Transferase 31 U/L (0-37); Blood Urea Nitrogen 21 MG/DL (7-18); Calcium 9.1 MG/DL (8.5-10.1); Estimated Glom Filtration Rate 7 ML/MIN; Glucose 171 MG/DL (74-106); Osmolality,Calculated 270.5 MOS/KG (273-304); Total Protein 8.9 G/DL (6.4-8.3)
[2020-05-31 11:17] LABS: Amorphous Crystals,Urine Few /HPF (Few); Bacteria,Urine Occasional /HPF (Few); Bilirubin,Urine Negative (Negative); Blood, Urine Negative (Negative); Glucose,Urine (UA) Negative (Negative); Hyaline Casts,Urine 4 /LPF (0-3); Ketones,Urine Negative (Negative); Mucus,Urine Occasional /LPF (Occasional); Nitrite,Urine Negative (Negative); Protein,Urine 30 MG/DL; RBC,Urine 1 /HPF (0-4); Squamous Epithelial Cell,Urine Occasional /HPF (0-10); Urine Appearance CLEAR (Clear); Urine Color Amber (Yellow); Urine Specific Gravity 1.018 (1.001-1.035); Urine Urobilinogen < 2.0 EU/DL (0.2-1.0); WBC,Urine <1 /HPF (0-6)
[2020-05-31] MEDS ORDERED: SODIUM CHLORIDE 0.9% 1,000 ML IV STA ×2 (11:26→11:27)
[2020-05-31] MEDS ORDERED: cefTRIAXone 1,000 MG in SODIUM CHLORIDE 0.9% 100 ML IV STA (11:27)
[2020-05-31] MEDS ORDERED: GLUCAGON 1 MG VIAL IM PRN (13:44)
[2020-05-31] MEDS ORDERED: ONDANSETRON 4 MG/2 ML VIAL IV PRN (13:44)
[2020-05-31] MEDS ORDERED: DOCUSATE SODIUM 100 MG CAPSULE PO PRN (13:44)
[2020-05-31] MEDS ORDERED: LACTULOSE 20 GM/30 ML UDCUP PO PRN (13:44)
[2020-05-31] MEDS ORDERED: DEXTROSE 50% 25 GM/50 ML VIAL IV PRN (13:44)
[2020-05-31] MEDS: HEPARIN 5,000 UNIT/1 ML VIAL SUBCUT SCH (15:45)
[2020-05-31] MEDS: INSULIN LISPRO 100 UNIT/ML SUBCUT SCH ×2 (18:49→21:53)
[2020-05-31] MEDS: CALCIUM ACETATE 667 MG CAPSULE PO SCH ×2 (18:49→21:52)
[2020-05-31] MEDS: ACETAMINOPHEN 325 MG TABLET PO PRN (21:15)
[2020-05-31] MEDS: allopurinoL 100 MG TABLET PO SCH (21:52)
[2020-06-01] MEDS: HEPARIN 5,000 UNIT/1 ML VIAL SUBCUT SCH ×4 (00:32→23:25)
[2020-06-01] MEDS: ACETAMINOPHEN 325 MG TABLET PO PRN (01:32)
[2020-06-01 02:37] LABS: Basophils % 0.2 % (0.0-0.8); Eosinophils % 0.2 % (0.00-10.9); Hematocrit 36.9 VOL% (35.7-47.0); Immature Granulocytes % 1.5 %; Immature Granulocytes Absolute 0.16 #; Lymphocytes # 1.5 10*3/uL (1.4-4.0); Mean Corpuscular HGB Conc 32.5 GM/DL (32-36); Mean Corpuscular Volume 95.1 FL (87-102); Mean Platelet Volume 8.7 FL (9.6-12.0); Monocytes % 4.7 % (1.7-12.7); Neutrophils % 79.4 % (38.7-73.9); Platelet Count 385 T/CUMM (130-400); Red Blood Count 3.88 MC/CUMM (3.8-5.5); Red Cell Distribution Width 15.2 % (9.3-17.3); White Blood Count 10.8 T/CUMM (4-12)
[2020-06-01 02:45] LABS: Albumin 2.6 G/DL (3.4-5.0); Bilirubin,Total 0.4 MG/DL (0.2-1.0); Calcium 7.4 MG/DL (8.5-10.1); Osmolality,Calculated 277.2 MOS/KG (273-304); Thyroid Stimulating Hormone 12.9 uIU/ml (0.358-3.74); Total Protein 7.3 G/DL (6.4-8.3)
[2020-06-01] MEDS ORDERED: LEVOTHYROXINE 100 MCG TABLET PO SCH (06:00)
[2020-06-01] MEDS ORDERED: VANCOMYCIN INJ 1,000 MG in SODIUM CHLORIDE 0.9% 250 ML IV SCH (06:30)
[2020-06-01] MEDS ORDERED: VANCOMYCIN INJ 1,250 MG in SODIUM CHLORIDE 0.9% 250 ML IV SCH (06:30)
[2020-06-01] MEDS: PIPERACILLIN/TAZOBACTAM 3,375 MG in SODIUM CHLORIDE 0.9% 100 ML IV SCH ×2 (06:47→17:41)
[2020-06-01 07:05] LABS: Free T4 (Free Thyroxine) 1.07 NG/DL (0.76-1.46)
[2020-06-01] MEDS: INSULIN LISPRO 100 UNIT/ML SUBCUT SCH ×4 (07:42→20:36)
[2020-06-01] MEDS ORDERED: VANCOMYCIN INJ 500 MG in SODIUM CHLORIDE 0.9% 100 ML IV PRN (08:13)
[2020-06-01] MEDS ORDERED: SODIUM CHLORIDE 0.9% 1,000 ML IV ONE (08:19)
[2020-06-01] MEDS: ASPIRIN EC 81 MG TABLET PO SCH (08:25)
[2020-06-01] MEDS: CLOPIDOGREL 75 MG TABLET PO SCH (08:25)
[2020-06-01] MEDS: CALCIUM ACETATE 667 MG CAPSULE PO SCH ×3 (08:25→16:39)
[2020-06-01] MEDS: PANTOPRAZOLE 40 MG TABLET PO SCH (08:25)
[2020-06-01] MEDS ORDERED: VANCOMYCIN INJ 1,500 MG in SODIUM CHLORIDE 0.9% 500 ML IV ONE ×2 (10:00→12:00)
[2020-06-01] MEDS: traMADol 50 MG TABLET PO PRN (16:39)
[2020-06-01] MEDS: allopurinoL 100 MG TABLET PO SCH (18:01)
[2020-06-02 06:10] LABS: Basophils % 0.3 % (0.0-0.8); Eosinophils # 0.3 10*3/uL (0.0-0.87); Eosinophils % 3.7 % (0.00-10.9); Hematocrit 29.3 VOL% (35.7-47.0); Hemoglobin 9.4 GM/DL (12.0-16.0); Immature Granulocytes % 1.4 %; Lymphocytes # 0.5 10*3/uL (1.4-4.0); Lymphocytes % 6.6 % (21.3-54.2); Mean Corpuscular HGB Conc 32.1 GM/DL (32-36); Mean Corpuscular Volume 97.3 FL (87-102); Mean Platelet Volume 8.7 FL (9.6-12.0); Monocytes % 3.7 % (1.7-12.7); Neutrophils % 84.3 % (38.7-73.9); Platelet Count 257 T/CUMM (130-400); Red Blood Count 3.01 MC/CUMM (3.8-5.5); Red Cell Distribution Width 15.6 % (9.3-17.3); White Blood Count 7.1 T/CUMM (4-12)
[2020-06-02] MEDS: LEVOTHYROXINE 112 MCG TABLET PO SCH (06:20)
[2020-06-02] MEDS: PIPERACILLIN/TAZOBACTAM 3,375 MG in SODIUM CHLORIDE 0.9% 100 ML IV SCH ×2 (06:20→19:32)
[2020-06-02 06:34] LABS: Albumin 2.5 G/DL (3.4-5.0); Calcium 7.1 MG/DL (8.5-10.1); Osmolality,Calculated 274.2 MOS/KG (273-304); Total Protein 6.7 G/DL (6.4-8.3)
[2020-06-02] MEDS ORDERED: LIDOCAINE 1%/EPI INJ 20 ML VIAL ONE (10:03)
[2020-06-02] MEDS ORDERED: BUPIVACAINE MPF 0.25% 30 ML VIAL ONE (10:03)
[2020-06-02] MEDS ORDERED: TISSUE ADHESIVE 1 EACH APPLICATOR TOP ONE (10:50)
[2020-06-02] MEDS ORDERED: propofoL 200 MG/20 ML VIAL IV ONE (11:31)
[2020-06-02] MEDS ORDERED: LIDOCAINE 2% 5 ML VIAL ONE (11:31)
[2020-06-02] MEDS ORDERED: fentaNYL 100 MCG/2 ML VIAL ONE (11:32)
[2020-06-02] MEDS ORDERED: MIDAZOLAM 2 MG/2 ML VIAL ONE (11:32)
[2020-06-02] MEDS: CALCIUM ACETATE 667 MG CAPSULE PO SCH ×3 (18:30→19:31)
[2020-06-02] MEDS: allopurinoL 100 MG TABLET PO SCH (18:30)
[2020-06-02] MEDS: PANTOPRAZOLE 40 MG TABLET PO SCH (18:31)
[2020-06-02] MEDS: INSULIN LISPRO 100 UNIT/ML SUBCUT SCH ×3 (18:31→21:04)
[2020-06-02] MEDS: CLOPIDOGREL 75 MG TABLET PO SCH (18:31)
[2020-06-02] MEDS: HEPARIN 5,000 UNIT/1 ML VIAL SUBCUT SCH ×3 (18:35→22:34)
[2020-06-02] MEDS: ASPIRIN EC 81 MG TABLET PO SCH (19:29)
[2020-06-02] MEDS: traMADol 50 MG TABLET PO PRN (21:00)
[2020-06-03] MEDS: PIPERACILLIN/TAZOBACTAM 3,375 MG in SODIUM CHLORIDE 0.9% 100 ML IV SCH (05:49)
[2020-06-03] MEDS: LEVOTHYROXINE 112 MCG TABLET PO SCH (05:49)
[2020-06-03 06:05] LABS: Basophils % 0.3 % (0.0-0.8); Eosinophils # 0.4 10*3/uL (0.0-0.87); Eosinophils % 7.4 % (0.00-10.9); Hematocrit 24.9 VOL% (35.7-47.0); Hemoglobin 8.1 GM/DL (12.0-16.0); Immature Granulocytes % 1.8 %; Immature Granulocytes Absolute 0.11 #; Lymphocytes # 0.7 10*3/uL (1.4-4.0); Lymphocytes % 12.1 % (21.3-54.2); Mean Corpuscular HGB Conc 32.5 GM/DL (32-36); Mean Corpuscular Volume 96.9 FL (87-102); Mean Platelet Volume 8.8 FL (9.6-12.0); Monocytes % 4.7 % (1.7-12.7); Neutrophils % 73.7 % (38.7-73.9); Platelet Count 217 T/CUMM (130-400); Red Blood Count 2.57 MC/CUMM (3.8-5.5); Red Cell Distribution Width 15.5 % (9.3-17.3)
[2020-06-03 06:43] LABS: Albumin 2.4 G/DL (3.4-5.0); Bilirubin,Total 0.6 MG/DL (0.2-1.0); Osmolality,Calculated 278.2 MOS/KG (273-304); Total Protein 6.6 G/DL (6.4-8.3)
[2020-06-03 06:57] LABS: Folate 4.7 NG/ML (5.4-24.0)
[2020-06-03] MEDS: INSULIN LISPRO 100 UNIT/ML SUBCUT SCH ×2 (08:05→13:14)
[2020-06-03] MEDS: ASPIRIN EC 81 MG TABLET PO SCH (08:45)
[2020-06-03] MEDS: CALCIUM ACETATE 667 MG CAPSULE PO SCH ×2 (08:45→13:20)
[2020-06-03] MEDS: CLOPIDOGREL 75 MG TABLET PO SCH (08:45)
[2020-06-03] MEDS: HEPARIN 5,000 UNIT/1 ML VIAL SUBCUT SCH (08:45)
[2020-06-03] MEDS: traMADol 50 MG TABLET PO PRN (08:45)
[2020-06-03] MEDS: PANTOPRAZOLE 40 MG TABLET PO SCH (08:45)
[2020-06-03] MEDS ORDERED: FOLIC ACID 0.4 MG TABLET PO SCH (12:00)
[2020-06-03 13:14] VITALS: BP 153/87
[2020-06-03] MEDS ORDERED: VANCOMYCIN INJ 500 MG in SODIUM CHLORIDE 0.9% 100 ML IV ONE (17:00)
== END 2020-06-03 15:08 | disposition home or self-care (01) | DRG 907 ==
LOC: EDBD → EDUNIT# → N.ED 09:15 → N.EDINP 17:40 → N.3E 18:39
PROVIDERS: ADMIT Hospitalist; ATTEND Hospitalist